=== PATIENT | male | born 1960 | race African-American/Black ===

== ENCOUNTER 2017-03-26 13:31 | Emergency (ER) | payer BC, SELFPAY ==
[2017-03-26 13:42] VITALS: BP 154/91; PULSE 87; RESP 20; TEMP 37.5; O2SAT 100; BMI 35.9
[2017-03-26 14:00] LABS: UTC Influenza A Antigen Negative (Negative); UTC Influenza B Antigen Negative (Negative)
--- NOTE | 2017-03-26 14:03 | HMH.EDUTC ---
[facility] [place] Disposition Clinical Impression: Flu-like symptoms Disposition: Home, Self-Care Condition on Discharge: Good Instructions: DI for Headache Additional Instructions: Follow up with family doctor REturn if needed Over the counter Motrin or Tylenol as needed for fever or pain Go straight to ER if any life threatening complication Referrals: Viet Dotson MD [Primary Care Provider] - Time of Disposition: 14:11 Medical Decision Making - Medical Records Medical records reviewed: Yes: I reviewed the patient's medical records. Vital Signs: 03/26/17 13:42 Temperature 99.5 F Temperature Source Temporal Artery Scan Pulse Rate [Right] 87 Respiratory Rate 20 Blood Pressure [Right Arm] 154/91 Blood Pressure Mean [Right Arm] 112 Blood Pressure Source [Right Arm] Automatic Cuff Blood Pressure Position [Right Arm] Sitting 02 Sat by Pulse Oximetry 100 Oxygen Delivery Method Room Air - Lab Data Lab Results 03/26/17 13:35: Influenza Type A Ag Negative, Influenza Type B Ag Negative - Gallito Inquiry Pt receiving controlled substance: No Gallito was queried for this patient: No [facility] HPI - General Stated complaint: head cold Mode of Arrival: Ambulatory Source of Information: Patient Limitations: No Limitations Description of Symptoms (Recalled from Triage Doc. 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, and a slight headache States that he was worried that he may have the flu because many of the children have been out of school due to the flu so he came up to get checked State that he dont think he has had a fever, denies sore throat denies nasal congestion - Related Data Allergies Allergy/AdvReac Type Severity Reaction Status Date / Time No Known Allergies Allergy Verified 03/26/17 13:45 - Worker's Comp Is this a Worker's Comp case?: No [facility] History I have reviewed the patient's past medical history: Yes - *Social History Alcohol Intake: never - Psychiatric History Expresses thoughts of harming self/others: None Suicide Plan Description: No Plan ROS Obtained: Yes All systems reviewed & no additional complaints - Constitutional Constitutional: Reports chills, Denies fever(s), Reports headache(s) - ENT Ears, Nose, Mouth, and Throat: Denies nasal congestion, Denies sore throat Physical Exam - General General appearance: alert, in no apparent distress - ENT ENT exam: Present: normal exam, normal oropharynx, mucous membranes moist, TM's normal bilaterally, normal external ear exam - Respiratory Respiratory exam: Present: normal lung sounds bilaterally. Absent: respiratory distress - Cardiovascular Cardiovascular exam: Present: regular rate, normal rhythm. Absent: JVD - Abdominal Exam Abdominal exam: Present: soft, normal bowel sounds. Absent: distention, tenderness, guarding - Neurological Exam Neurological exam: Present: alert, oriented X3
--- NOTE | 2017-03-26 14:07 | ED_ITS ---
[facility] [place] Clinical Impression: Flu-like symptoms Disposition: Home, Self-Care Condition on Discharge: Good Instructions: DI for Headache Additional Instructions: Follow up with family doctor REturn if needed Over the counter Motrin or Tylenol as needed for fever or pain Go straight to ER if any life threatening complication Referrals: Viet Dotson MD [Primary Care Provider] - Time of Disposition: 14:11 Medical Decision Making - Medical Records Medical records reviewed: Yes: I reviewed the patient's medical records. Vital Signs: 03/26/17 13:42 Temperature 99.5 F Temperature Source Temporal Artery Scan Pulse Rate [Right] 87 Respiratory Rate 20 Blood Pressure [Right Arm] 154/91 Blood Pressure Mean [Right Arm] 112 Blood Pressure Source [Right Arm] Automatic Cuff Blood Pressure Position [Right Arm] Sitting 02 Sat by Pulse Oximetry 100 Oxygen Delivery Method Room Air - Lab Data Lab Results 03/26/17 13:35: Influenza Type A Ag Negative, Influenza Type B Ag Negative - Galltio Inquiry Pt receiving controlled substance: No Gallito was queried for this patient: No [facility] [place] HPI - General Stated complaint: head cold Mode of Arrival: Ambulatory Source of Information: Patient Limitations: No Limitations Description of Symptoms (Recalled from Triage Doc. 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 History I have reviewed the patient's past medical history: Yes - *Social History Alcohol Intake: never - Psychiatric History Expresses thoughts of harming self/others: None Suicide Plan Description: No Plan ROS Obtained: Yes All systems reviewed & no additional complaints - Constitutional Constitutional: Reports chills, Denies fever(s), Reports headache(s) - ENT Ears, Nose, Mouth, and Throat: Denies nasal congestion, Denies sore throat Physical Exam - General General appearance: alert, in no apparent distress - ENT ENT exam: Present: normal exam, normal oropharynx, mucous membranes moist, TM's normal bilaterally, normal external ear exam - Respiratory Respiratory exam: Present: normal lung sounds bilaterally. Absent: respiratory distress - Cardiovascular Cardiovascular exam: Present: regular rate, normal rhythm. Absent: JVD - Abdominal Exam Abdominal exam: Present: soft, normal bowel sounds. Absent: distention, tenderness, guarding - Neurological Exam Neurological exam: Present: alert, oriented X3
[2017-03-26 14:17] VITALS: BP 132/87; PULSE 88; RESP 20; TEMP 37.1
== END 2017-03-26 14:18 | disposition home or self-care (01) ==
PROVIDERS: Emergency Provider Nurse Practitioner; Family Provider Family Medicine; PCP Family Medicine
DX: J11.1 Influenza due to unidentified influenza virus with other respiratory manifestations (principal)
CPT/HCPCS: 87804; 99202

== ENCOUNTER → 2017-05-05 16:10 | Outpatient (CLI) | payer BC, OTHER, SELFPAY ==
--- NOTE | 2017-05-05 16:15 | XR_ITS ---
XR hand LT min 3V HISTORY: Pain, arthritis ITS.REASON: JOSE HAND PAIN ORDERING PHYSICIAN: Viet Dotson MD PATIENT AGE: 56 years COMPARISON: None FINDINGS: Severe osteoarthritic changes are present at the first metacarpophalangeal joint with hypertrophic changes of the distal aspect of the first metacarpal. Mild osteoarthritic changes involving the DIP of the fifth digit. No fracture or dislocation. No lytic or blastic change. 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
--- NOTE | 2017-05-05 16:15 | XR_ITS ---
XR hand RT min 3V HISTORY: Right hand pain ITS.REASON: JOSE HAND PAIN ORDERING PHYSICIAN: Viet Dotson MD PATIENT AGE: 56 years COMPARISON: None FINDINGS: There are mild osteoarthritic changes of the right first metacarpal phalangeal joint and the fifth PIP joint. No fracture or dislocation. Mild osteoarthritic change also at the DIP joint of the third digit. IMPRESSION: Osteoarthritis as described above
== END ==
PROVIDERS: PCP Family Medicine; Visit Provider Family Medicine
DX: M79.641 Pain in right hand (principal); M79.642 Pain in left hand
CPT/HCPCS: 73130

== ENCOUNTER → 2017-05-11 20:01 | Outpatient (CLI) | payer OTHER, BC, SELFPAY | PROVIDERS: PCP Family Medicine; Visit Provider Nurse Practitioner Family | DX: G47.33 Obstructive sleep apnea (adult) (pediatric) (principal); K21.9 Gastro-esophageal reflux disease without esophagitis | CPT/HCPCS: 95810 ==

== ENCOUNTER → 2018-05-08 13:50 | Outpatient (POV) | payer OTHER, BC, SELFPAY | PROVIDERS: Visit Provider Dermatology | DX: Z00.00 Encounter for general adult medical examination without abnormal findings (principal) ==

== ENCOUNTER → 2019-03-13 10:45 | Outpatient (CLI) | payer BC, OTHER, SELFPAY ==
--- NOTE | 2019-03-13 10:54 | XR_ITS ---
PROCEDURE: XR KNEE RT 3V CLINICAL INDICATION: RT KNEE GIVES AWAY COMPARISON: No exams were available for comparison FINDINGS: No fracture or dislocation. No lytic or blastic change. There is normal mineralization. Minimal osteoarthritic changes are present involving all 3 compartments. There does appear to be a small suprapatellar effusion Other findings:None. IMPRESSION: Minimal osteoarthritic changes with small suprapatellar effusion Dictated by: Christo Avery MD 03/13/2019 15:43 Electronically signed by Christo Avery MD in [place] 03/13/2019 15:43
== END ==
PROVIDERS: PCP Nurse Practitioner; Visit Provider Nurse Practitioner
DX: M25.361 Other instability, right knee (principal)
CPT/HCPCS: 73562

== ENCOUNTER 2019-04-16 15:00 | Outpatient (RCR) | payer BC, SELFPAY ==
--- NOTE | 2019-03-20 15:52 | HMH.PTOPEV ---
PT Outpatient Evaluation Rehab PT Outpatient Evaluation Start: 03/20/19 15:27 Freq: Status: Active Protocol: Document 03/20/19 15:27 [email or web address] (Rec: 03/20/19 15:52 RONNIEJOSE [id number]) Electronically Signed By Jean Fernández, PT 03/20/19 15:27 Outpatient Therapy Subjective History Subjective History Patient is a 58 year old male presenting to outpatient PT with reports of R knee pain and stiffness starting 03/12/19. Pt reports that he was riding a recumbent bike and then began walking when he felt a pop. Since then pain has progressively goten worse. Most recent imaging indicate R knee minimal arthritic changes and suprapatellar effusion. Comorbidities include L CINDY, OA and elevated BMI. Chief Complaint Pain,Swelling,Weakness Symptom Type Ache Symptoms Relieved By Activity Symptoms Aggravated By Sitting,Standing,Walking Prior Functional Limitations None Current Functional Limitations Housework,Driving,Standing, Sitting,Squatting,Recreation Activity,Walking,Stairs, Balance Symptom Description Intermittent Level of pain today (0-10) 4 Pain scale - at its best (0-10) 2 Pain scale - at its worst (0-10) 8 Hip/Knee Eval Gait Observation General Gait Pattern Observation Antalgic Gait,Decrease Weight Bear (R) Assistive Device Assistive Devices None / NA Palpation Tenderness right Knee Palpation Finding Tenderness Knee Palpation Overall Comment medial joint line, popliteal fossa 3/4 MMT left Hip Flexion Strength Grade 4 Good Hip Abduction Strength Grade 4 Good Hip Adduction Strength Grade 4 Good Hip Extension Strength Grade 4 Good Gluteus Asad Strength Grade 4 Good Hip External Rotation Strength Grade 4 Good Hip Internal Rotation Strength Grade 4 Good Knee Extension Strength Grade 4 Good Knee Flexion Strength Grade 4 Good right Hip Flexion Strength Grade 4- Good- Hip Abduction Strength Grade 4- Good- Hip Adduction Strength Grade 4- Good- Hip Extension Strength Grade 4- Good- Gluteus Asad Strength Grade 4- Good- Hip External Rotation Strength Grade 4- Good- Hip Internal Rotation Strength Grade 4- Good- Knee Extension Strength Grade
== END 2019-04-16 15:05 | disposition home or self-care (01) ==
LOC: PT 15:00
PROVIDERS: PCP Nurse Practitioner; Visit Provider Nurse Practitioner
DX: M25.661 Stiffness of right knee, not elsewhere classified (principal)
CPT/HCPCS: 97010; 97014; 97110; 97163; G0283

== ENCOUNTER 2019-06-17 02:20 | Emergency (ER) | payer BC, SELFPAY ==
[2019-06-17] VITALS (10 sets, daily range): BP systolic 127–174; BP diastolic 77–89; PULSE 95–118; RESP 16–18; TEMP 36.5–36.8; O2SAT 97–99; BMI 35.2
--- NOTE | 2019-06-17 02:34 | ECG_ITS ---
APPROVED REPORT Exam: Resting ECG HR:123 bpm ECG Measurements Heart Rate 123 AXES AL 136 P 76 QRSd 72 QRS 20 QT 316 T 43 QTc 452 <Conclusion> Sinus tachycardia Junctional ST depression, probably normal Borderline ECG Electronically signed by : Kvng Fajardo, 06/17/2019 14:04:04
[2019-06-17 02:41] LABS: Basophils # 0.1 K/mm3 (0-0.2); Basophils % 0.6 % (0.1-2.0); Eosinophils # 0.2 K/mm3 (0.0-0.4); Eosinophils % 2.2 % (0.1-12.0); Hematocrit 44.5 % (42.0-52.0); Hemoglobin 14.4 g/dL (14.1-18.0); Lymphocytes # 5.3 K/mm3 (0.7-4.5); Lymphocytes % 48.8 % (10-50); Mean Corpuscular HGB Conc 32.3 g/dL (31.8-35.4); Mean Corpuscular Hemoglobin 30.4 pg (27.0-31.2); Mean Corpuscular Volume 94.2 fl (80-94); Mean Platelet Volume 6.9 fl (7.4-10.4); Monocytes # 0.5 K/mm3 (0.1-1.0); Monocytes % 4.3 % (1.7-9.3); Neutrophils # 4.8 K/mm3 (1.8-7.8); Neutrophils % 44.2 % (37.0-80.0); Platelet Count 285 K/mm3 (142-424); Red Blood Count 4.73 M/mm3 (4.60-6.20); Red Cell Distribution Width 13.4 % (11.5-17.5); White Blood Count 10.9 K/mm3 (4.8-10.8)
--- NOTE | 2019-06-17 02:41 | XR_ITS ---
PROCEDURE: XR CHEST 2V CLINICAL HISTORY: Elevated BP hypertension COMPARISON: CXR CHEST(2 VIEWS-NOT PORTABLE) from 10/10/2016 FINDINGS: The cardiomediastinal silhouette and pulmonary vascularity are within normal limits. The lungs are clear without infiltrates, suspicious nodules, or pleural effusions. No acute bony abnormalities. IMPRESSION: No acute findings. Dictated by: Christo Avery MD 06/17/2019 08:01 Electronically signed by Christo Avery MD in [place] 06/17/2019 08:01
--- NOTE | 2019-06-17 02:45 | PC.NURSE ---
iv secured to left ac. pt resting comfortably. ivf's infusing at this time. no additional orders noted. continues to deny discomfort. nad obs.
[2019-06-17 02:50] LABS: Anion Gap 9.4 mEq/L (5-15); Blood Urea Nitrogen 15 mg/dl (9-20); Calcium 9.5 mg/dl (8.4-10.2); Carbon Dioxide 28 mmol/L (22.0-30.0); Chloride 101 mmol/L (98-107); Creatinine Clearance Estimated 131 mL/min (50-200); Estimated Glomerular Filt Rate 76 ml/min (>60); GFR (African American) 92 ML/MIN (>60); Glucose 116 mg/dl (74-100); Potassium 3.4 mmoL/L (3.5-5.1); Sodium 135 mmol/L (136-145)
[2019-06-17 03:05] LABS: Troponin I < 0.01 ng/ml (0.00-0.034)
--- NOTE | 2019-06-17 03:22 | HMH.EDARPALP ---
ED Disposition Clinical Impression: Palpitations Disposition: Home, Self-Care Condition on Discharge: Good Instructions: DI for Palpitations Additional Instructions: call pcp for follow up this am Referrals: Viet Dotson MD [Primary Care Provider] - - Critical Care Critical Care Time: No Attestation: On 06/17/19, the high probability of a clinically significant, sudden or life threatening deterioration of the following system(s) required my full and direct attention, intervention and personal management. The time I documented below is in addition to time spent performing reported procedures but includes the following listed in this critical care notation. Medical Decision Making - Medical Records Medical records reviewed: Yes: I reviewed the patient's medical records. - Gallito Inquiry Pt receiving controlled substance: No Vital Signs: 06/17/19 02:34 06/17/19 02:43 06/17/19 03:16 Temperature 98.2 F 98.2 F Temperature Source Oral Oral Pulse Rate [Right Brachial] 118 H 110 H 111 H Respiratory Rate 16 18 18 Blood Pressure [Right Arm] 174/89 H 170/81 H 146/80 H Blood Pressure Mean [Right Arm] 117 110 102 Blood Pressure Source [Right Arm] Automatic Cuff Automatic Cuff Blood Pressure Position [Right Arm] Sitting Sitting 02 Sat by Pulse Oximetry 98 99 98 Oxygen Delivery Method Room Air Room Air Room Air 06/17/19 04:12 06/17/19 04:30 06/17/19 05:08 Temperature Temperature Source Pulse Rate [Right Brachial] 105 H 102 H 99 H Respiratory Rate 18 16 18 Blood Pressure [Right Arm] 150/85 H 150/86 H 137/79 Blood Pressure Mean [Right Arm] 106 107 98 Blood Pressure Source [Right Arm] Automatic Cuff Blood Pressure Position [Right Arm] 02 Sat by Pulse Oximetry 97 98 98 Oxygen Delivery Method Room Air Room Air Room Air 06/17/19 05:36 06/17/19 06:11 06/17/19 06:38 Temperature Temperature Source Pulse Rate [Right Brachial] 98 H 98 H 95 H Respiratory Rate 18 18 18 Blood Pressure [Right Arm] 131/77 127/81 145/87 H Blood Pressure Mean [Right Arm] 95 96 106 Blood Pressure Source [Right Arm] Blood Pressure Position [Right Arm] 02 Sat by Pulse Oximetry 98 99 99 Oxygen Delivery Method Room Air Room Air Room Air - Lab Data Lab results reviewed: Yes: I reviewed the patient's lab results. Lab Results 06/17/19 02:33: WBC 10.9 H, RBC 4.73, Hgb 14.4, Hct 44.5, MCV 94.2 H, MCH 30.4, MCHC 32.3, RDW 13.4, Plt Count 285, MPV 6.9 L, Neut % (Auto) 44.2, Lymph % (Auto) 48.8, [place] % (Auto) 4.3, Eos % (Auto) 2.2, Baso % (Auto) 0.6, Neut # (Auto) 4.8, Lymph # (Auto) 5.3 H, [place] # (Auto) 0.5, Eos # (Auto) 0.2, Baso # (Auto) 0.1 06/17/19 02:33: Sodium 135 L, Potassium 3.4 L, Chloride 101, Carbon Dioxide 28, Anion Gap 9.4, BUN 15, Creatinine 1.00, Estimated Creat Clear 131, Estimated GFR 76, Est GFR ( Amer) 92, Glucose 116 H, Calcium 9.5, Troponin I < 0.01 06/17/19 05:28: Troponin I < 0.01 Result diagrams: 06/17/19 02:33 06/17/19 02:33 Orders (Tests/Meds): ED MEDICATIONS Generic Name Dose Route Start Last Admin Trade Name Freq PRN Reason Stop Dose Admin Sodium Chloride 1,000 mls @ 999 mls/hr 06/17/19 02:45 06/17/19 02:45 Sod Chlor 0.9% 1000ml Bag IV 06/17/19 03:45 999 mls/hr .Q1H1M WAYNE Administration ORDERS Category Date Time Status XR chest 2V Stat Exams 06/17/19 02:41 Taken Troponin I Q3H Lab 06/17/19 08:45 Ordered Holter Monitor Req by Nse/ Stat Y 06/17/19 06:02 Ordered - Radiology Data #1 Image(s): Chest Image Reviewed: Yes I reviewed the patient's radiology image Preliminary Findings: Normal/NAD - ECG Data Tracing #1 Arrhythmias present: sinus tach Ischemic changes: non-specific ST-T wave changes - CADEN Score for Non-Stemi Age of Patient: 60-69 years old Heart Rate: 110-149 bpm Systolic Blood Pressure: 160-199 mmHg Serum Creatinine: 0.80-1.19 mg/dl CHF Killip Class: I-No CHF Other Risk Factors: None Non-Stemi Risk Score: 99
[2019-06-17 05:58] LABS: Troponin I < 0.01 ng/ml (0.00-0.034)
--- NOTE | 2019-06-17 06:32 | PC.NURSE ---
respiratory therapist at bedside placing halter monitor
== END 2019-06-17 06:52 | disposition home or self-care (01) ==
PROVIDERS: Emergency Provider Emergency Medicine; PCP Family Medicine
DX: R00.2 Palpitations (principal); G43.709 Chronic migraine without aura, not intractable, without status migrainosus; Z87.891 Personal history of nicotine dependence
CPT/HCPCS: 71046; 80048; 84484; 85025; 93005; 93225; 93226; 96365; 99284

== ENCOUNTER → 2020-01-09 09:24 | Outpatient (CLI) | payer BC, SELFPAY ==
[2020-01-09 12:20] LABS: Alanine Aminotransferase 13 U/L (12-78); Albumin Level 4.6 g/dl (3.5-5.0); Albumin/Globulin Ratio 1.4 (1.1-1.8); Alkaline Phosphatase 70 U/L (38-126); Anion Gap 11.4 mEq/L (5-15); Aspartate Amino Transferase 23 U/L (17-59); Bilirubin,Total 0.6 mg/dl (0.2-1.3); Blood Urea Nitrogen 12 mg/dl (9-20); Calcium 9.9 mg/dl (8.4-10.2); Carbon Dioxide 32 mmol/L (22.0-30.0); Chloride 101 mmol/L (98-107); Estimated Glomerular Filt Rate 86 ml/min (>60); GFR (African American) 104 ML/MIN (>60); Globulin 3.2 g/dL (1.3-3.2); Glucose 96 mg/dl (74-100); Potassium 4.4 mmoL/L (3.5-5.1); Sodium 140 mmol/L (136-145); Total Protein,Serum 7.8 g/dl (6.3-8.2)
[2020-01-09 13:26] LABS: Vitamin B12 476 pg/mL (239-931)
[2020-01-09 13:32] LABS: Folate 6.07 ng/mL
== END ==
PROVIDERS: Visit Provider Specialist
DX: G43.909 Migraine, unspecified, not intractable, without status migrainosus (principal); R42 Dizziness and giddiness; I10 Essential (primary) hypertension
CPT/HCPCS: 36415; 80053; 82607; 82746

== ENCOUNTER 2020-01-14 12:58 | Outpatient (RCR) | payer BC, SELFPAY ==
--- NOTE | 2020-01-14 14:18 | HMH.PTOPEV ---
PT Outpatient Evaluation Rehab PT Outpatient Evaluation Start: 01/14/20 13:16 Freq: Status: Active Protocol: Document 01/14/20 14:00 PHORNE (Rec: 01/14/20 14:18 PHORNE [id number]) Electronically Signed By Cristóbal Gardiner, PT 01/14/20 14:00 Outpatient Therapy Subjective History Subjective History Pt is 59 yoaam who presents with c/o dizziness x ~ 14 yrs intermittently, but worse x ~ 3 mos. He states, I put some peroxide in my L ear about 3 months ago and it hurt really bad and my dizziness has been a lot worse since then. He reports he also has a hx of tinnitus in B ears with the L slightly worse than the right. He reports very rare vertigo with certain movements, but he has not had any recently. He also reports hx of Sleep apnea , migraines, HTN, and anxiety. He does take meds for hypertension, but has only been on them for ~ 4 mos. No nystagmus noted with Hotchkiss- Halpike or horizontal roll testing. Mild symptoms noted with VOR cancellation test, but no nystagmus noted. Otherwise all occulomotor testing is normal. Chief Complaint Other Symptom Type Other Symptoms Relieved By Rest/Positioning Symptoms Aggravated By Twisting Prior Functional Limitations None Current Functional Limitations Driving,Recreation Activity Symptom Description Intermittent Level of pain today (0-10) 0 Pain scale - at its worst (0-10) 0 Balance Eval Nystagmus Nystagmus Presence None Oculomotor Gaze Oculomotor Gaze Nml: Vergence Smooth Pursuit Saccades Cover/Uncover Cross Cover Abn: VOR Cancellation [place] Feet Together/Eyes open/Stable Surface pass Feet Together/Eyes Closed/Stable Surface pass Feet Together/Eyes open/Unstable Surface pass Feet Together/Eyes Closed/Unstable pass Surface Outpatient Therapy Assessment Impairments Problems/Impairmments Impaired Driving,Impaired
== END 2020-01-14 12:59 | disposition home or self-care (01) ==
LOC: PT 12:58
PROVIDERS: PCP Family Medicine; Visit Provider Specialist
DX: R42 Dizziness and giddiness (principal)
CPT/HCPCS: 97163

== ENCOUNTER → 2020-01-14 15:05 | Outpatient (CLI) | payer BC, SELFPAY ==
--- NOTE | 2020-01-14 15:05 | MR_ITS ---
PROCEDURE: MR HEAD/BRAIN WO/W CON CLINICAL INDICATION: dizziness Dizziness and headaches COMPARISON: CT HDWO CT HEAD W/O CONTRAST from 07/07/2016 TECHNIQUE: Routine multiplanar multi echo sequences are performed without gadolinium enhancement. FINDINGS: No midline shift or mass effect. No acute intracranial hemorrhage. The cerebellopontine angles, cerebellum, and brainstem have an unremarkable appearance. No evidence of acute infarction. No enhancing lesions are evident. There are scattered periventricular and subcortical T2 white matter hyperintensities which are nonspecific. These do not demonstrate restricted diffusion and do not demonstrate contrast enhancement. The pituitary, optic chiasm, corpus callosum, and craniocervical junction have an unremarkable appearance. There is a bulging disc at C3-C4 with narrowing of the canal at this level. No sinus air-fluid level or mastoid effusion is evident IMPRESSION: 1. No acute intracranial findings 2. Multiple periventricular and subcortical T2 white matter hyperintensities which is nonspecific. Differential diagnosis includes ischemic gliotic change from microvascular disease, migraine headache, demyelinating process. Please correlate with clinical parameters Dictated by: Christo Avery MD 01/15/2020 18:17 Christo Avery MD in [place] 01/15/2020 18:17
== END ==
PROVIDERS: PCP Family Medicine; Visit Provider Specialist
DX: G43.909 Migraine, unspecified, not intractable, without status migrainosus (principal); R42 Dizziness and giddiness
CPT/HCPCS: 70553; A9576

== ENCOUNTER → 2020-10-02 13:08 | Outpatient (CLI) | payer BC, SELFPAY ==
--- NOTE | 2020-10-02 | CA_ITS ---
APPROVED REPORT Right Upper Extremity Venous Study for DVT. Civil Drafting Technician: RYAN Givens Upper Extremity Swelling: Right Vein Imaging IJV (R): Normal phasic flow is seen. Normal flow, augmentation and compression is seen. No evidence of Deep Vein Thrombosis. No abnormalities are demonstrated. SCV (R): Normal phasic flow is seen. Normal flow, augmentation and compression is seen. No evidence of Deep Vein Thrombosis. No abnormalities are demonstrated. Axillary (R): Normal phasic flow is seen. Normal flow, augmentation and compression is seen. No evidence of Deep Vein Thrombosis. No abnormalities are demonstrated. Brachial (R): Normal phasic flow is seen. Normal flow, augmentation and compression is seen. No evidence of Deep Vein Thrombosis. No abnormalities are demonstrated. Basilic (R): Normal phasic flow is seen. Normal flow, augmentation and compression is seen. No evidence of Deep Vein Thrombosis. No abnormalities are demonstrated. Cephalic (R): Normal phasic flow is seen. Normal flow, augmentation and compression is seen. No evidence of Deep Vein Thrombosis. No abnormalities are demonstrated. Radial (R): Normal phasic flow is seen. Normal flow, augmentation and compression is seen. No evidence of Deep Vein Thrombosis. No abnormalities are demonstrated. Ulnar (R): Normal phasic flow is seen. Normal flow, augmentation and compression is seen. No evidence of Deep Vein Thrombosis. No abnormalities are demonstrated. Findings Study suggets no evidence of DVT or SVT of the right upper extremity. Conclusion Study suggets no evidence of DVT or SVT of the right upper extremity. Electronically signed by : Christo Avery MD 10/02/2020 15:05:31
== END ==
PROVIDERS: PCP Family Medicine; Visit Provider Family Medicine
DX: M79.89 Other specified soft tissue disorders (principal)
CPT/HCPCS: 93971

== ENCOUNTER → 2021-04-08 13:33 | Outpatient (CLI) | payer BC, SELFPAY ==
[2021-04-08 15:15] LABS: Blood Urea Nitrogen 16 mg/dl (9-20); Estimated Glomerular Filt Rate 76 ml/min (>60); GFR (African American) 92 ML/MIN (>60)
== END ==
PROVIDERS: Visit Provider Family Medicine
DX: Z01.812 Encounter for preprocedural laboratory examination (principal)
CPT/HCPCS: 36415; 82565; 84520

== ENCOUNTER → 2021-04-09 12:53 | Outpatient (CLI) | payer BC, SELFPAY ==
--- NOTE | 2021-04-09 12:59 | CT_ITS ---
FINAL REPORT CLINICAL HISTORY: RT UPPER LIMB PAIN,SWELLING, since sep 2020, no known injury FINDINGS: CT UPPER EXTREMITY W/O CONTRAST Technique: Axial images through the right upper extremity were performed by computed tomography. Sagittal and coronal reconstruction images were performed. This study was performed with techniques to keep radiation doses as low as reasonably achievable (ALARA). Individualized dose reduction techniques using automated exposure control or adjustment of mA and/or kV according to the patient's size were employed. No fracture is identified. No dislocation identified. There is mild degenerative change of the shoulder. There is moderate to severe degenerative change of the elbow. There is a 6 mm loose body adjacent to the neck of the radius. There is a large calcification posterior to the radial head measuring 24 mm favoring an additional loose body over a large spur. There is no significant joint effusion. The musculature is intact. There is no soft tissue mass or cyst. IMPRESSION: No soft tissue mass or cyst. Degenerative changes of the shoulder and elbow with a loose body or loose bodies at the elbow. Reviewed, Interpreted and Dictated by Jose F Anderson III, MD Transcribed by Armani Landis Authenticated by Jose F Anderson III, MD on 04/09/2021 03:10:47 PM [facility]
== END ==
PROVIDERS: PCP Family Medicine; Visit Provider Family Medicine
DX: M79.601 Pain in right arm (principal); M79.89 Other specified soft tissue disorders
CPT/HCPCS: 73201; Q9967

== ENCOUNTER 2021-09-09 10:00 | Outpatient (RCR) | payer BC, SELFPAY | END 2021-09-09 10:05 | disposition home or self-care (01) | LOC: PT 10:00 | PROVIDERS: Visit Provider Orthopaedic Surgery | DX: M17.0 Bilateral primary osteoarthritis of knee (principal) | CPT/HCPCS: 97035; 97110; 97112; 97140; 97163; 97164; 97530; 97535 ==

== ENCOUNTER 2021-09-16 14:02 | Emergency (ER) | payer BC, SELFPAY ==
[2021-09-16 14:15] VITALS: BP 148/86; PULSE 71; RESP 19; TEMP 37.2; O2SAT 99; BMI 38.2
[2021-09-16 14:29] VITALS: BP 148/86; PULSE 71; RESP 19; TEMP 37.2; O2SAT 99
--- NOTE | 2021-09-16 14:41 | HMH.EDUTC ---
[facility] [place] Disposition Clinical Impression: Encounter for laboratory testing for COVID-19 virus Disposition: Home, Self-Care Condition on Discharge: Good Instructions: DI for COVID-19 (Suspected or Confirmed ), Preventing the Spread of Coronavirus Discharge Instructions Additional Instructions: *Monitor Temp, Over the counter Motrin or Tylenol as directed/as needed Tylenol every 4 hours and Motrin every 6 hours (as long as your family doctor has told you that you can take it) for fever or pain. and straight to ER if unable to lower temp less than 101.0 after medication given Follow up IMMEDIATELY for new or worsening symptoms or no Noticeable improvement over the next 48-72 hours. 911 for difficulty breathing or swallowing You were tested for today for COVID19 your test result should be back in the next 24-48 hours, you may check your results on the [facility] My Health Portal Make sure to take your Vitamins Vit. C Vit D and Zinc if you can take them Referrals: Viet Dotson MD [Primary Care Provider] - As needed Time of Disposition: 14:48 Medical Decision Making - Gallito Inquiry Pt receiving controlled substance: No Gallito was queried for this patient: No Vital Signs: 09/16/21 14:15 09/16/21 14:29 Temperature 99.0 F 99.0 F Temperature Source Oral Pulse Rate 71 Pulse Rate [Left Brachial] 71 Respiratory Rate 19 19 Blood Pressure 148/86 H Blood Pressure [Left Arm] 148/86 H Blood Pressure Mean [Left Arm] 106 Blood Pressure Source [Left Arm] Automatic Cuff Blood Pressure Position [Left Arm] Sitting 02 Sat by Pulse Oximetry 99 Oxygen Delivery Method Room Air Orders (Tests/Meds): ORDERS Category Date Time Status Covid-19 Nasal PCR ([facility]) Routine Lab 09/16/21 14:20 Received [facility] HPI - General Stated complaint: Covid test Time Seen by Provider: 09/16/21 14:30 Mode of Arrival: Ambulatory Source of Information: Patient Limitations: No Limitations Description of Symptoms (Recalled from Triage Doc. by RN): PATIENT REQUESTING COVID TEST FOR TRAVEL. DENIES SYMPTOMS AND EXPOSURE HEENT Symptoms (Recalled from RN notes): No Resp Symptoms (Recalled from RN notes): No Skin Symptoms (Recalled from RN notes): No MS Symptoms (Recalled from RN notes): No Functional Status (Recalled from RN notes): WNL - History of Present Illness Provider Complaint: Patient states that he is getting ready to travel and he wanted to get tested for COVID before he went States that he isnt having any symptoms but he wanted to get tested - Related Data Home Medications Medication Instructions Recorded Confirmed nebivolol 10 mg tablet 10 mg PO DAILY 01/09/20 07/16/20 Previous Rx's Medication Instructions Recorded meclizine 12.5 mg tablet 12.5 mg PO BID PRN #60 tab 07/16/20 topiramate 100 mg tablet 100 mg PO DAILY #30 tab NS MDD 100 07/16/20 mg Allergies Allergy/AdvReac Type Severity Reaction Status Date / Time No Known Allergies Allergy Verified 07/16/20 14:22 - Worker's Comp Is this a Worker's Comp case?: No [facility] History - Hepatitis A Screen Attestation statement:: This patient has been screened for Hepatitis A risk factors. I have reviewed the patient's past medical history: Yes Medical History: Reports:: Anxiety, Diabetes Mellitus Type 1, Hypertension, Migraine Denies:: Diabetes Mellitus Type 2, Internal Pacemaker, Lung Disease, Seizures Other Medical History: Reports: Arthritis, Other Comment: SHEN Laterality Cases: Left: Total Hip Replacement, Other Other Surgeries: Yes: Colonoscopy, EGD, Other. No: Pacemaker Amputation: No Fractures: Yes Comment: Right thumb, esophagus - Social History Smoking Status: Former smoker Tobacco Type: cigarettes Alcohol Intake: never Alcohol Intake Frequency:: holidays/special occasions only Substance Use Type: denies use Occupational Status: employed Housing: house Household Members: none - Psychiatric History Pschychiatric History:: Repor
== END 2021-09-16 14:42 | disposition home or self-care (01) ==
PROVIDERS: Emergency Provider Nurse Practitioner; PCP Family Medicine
DX: Z20.822 Contact with and (suspected) exposure to COVID-19 (principal); Z02.89 Encounter for other administrative examinations
CPT/HCPCS: 99212; C9803; G0463; U0003; U0005

== ENCOUNTER 2021-09-26 08:59 | Emergency (ER) | payer BC, SELFPAY ==
[2021-09-26 09:05] VITALS: BP 131/86; PULSE 72; RESP 18; TEMP 36.8; O2SAT 98; BMI 36.6
[2021-09-26 09:19] VITALS: BP 131/86; PULSE 72; RESP 18; TEMP 36.8; O2SAT 98
--- NOTE | 2021-09-26 09:19 | HMH.EDUTC ---
[facility] [place] Clinical Impression: Encounter for laboratory testing for COVID-19 virus Disposition: Home, Self-Care Condition on Discharge: Good Instructions: DI for COVID-19 (Suspected or Confirmed ), Preventing the Spread of Coronavirus Discharge Instructions Additional Instructions: *Monitor Temp, Over the counter Motrin or Tylenol as directed/as needed Tylenol every 4 hours and Motrin every 6 hours (as long as your family doctor has told you that you can take it) for fever or pain. and straight to ER if unable to lower temp less than 101.0 after medication given *Warm salt water gargles may help to soothe the throat *Throat Lozenges *Warm fluids like tea with honey may help to soothe the throat *Sleep elevated *Humidifier/Vaporizer Follow up IMMEDIATELY for new or worsening symptoms or no Noticeable improvement over the next 48-72 hours. 911 for difficulty breathing or swallowing You were tested for today for COVID19 your test result should be back in the next 24-48 hours, you may check your results on the [facility] My Health Portal Make sure to take your Vitamins Vit. C Vit D and Zinc if you can take them Referrals: Viet Dotson MD [Primary Care Provider] - As needed Forms: Work/School Release Medical Decision Making - Gallito Inquiry Pt receiving controlled substance: No Gallito was queried for this patient: No Vital Signs: 09/26/21 09:05 Temperature 98.3 F Temperature Source Oral Pulse Rate [Right Brachial] 72 Respiratory Rate 18 Blood Pressure [Right Arm] 131/86 Blood Pressure Mean [Right Arm] 101 Blood Pressure Source [Right Arm] Automatic Cuff Blood Pressure Position [Right Arm] Sitting 02 Sat by Pulse Oximetry 98 Oxygen Delivery Method Room Air Orders (Tests/Meds): ORDERS Category Date Time Status Covid-19 Nasal PCR ([facility]) Routine Lab 09/26/21 09:06 Ordered [facility] [place] HPI - General Stated complaint: Possible covid exposure Time Seen by Provider: 09/26/21 09:19 Mode of Arrival: Ambulatory Source of Information: Patient Limitations: No Limitations Description of Symptoms (Recalled from Triage Doc. by RN): PATIENT REQUESTING COVID TEST AFTER RETURNING FROM [place]IP, DENIES SYMPTOMS HEENT Symptoms (Recalled from RN notes): No Resp Symptoms (Recalled from RN notes): No Skin Symptoms (Recalled from RN notes): No MS Symptoms (Recalled from RN notes): No Functional Status (Recalled from RN notes): WNL - History of Present Illness Provider Complaint: Patient states that he was recently went to a convention and several people from the convention has now tested positive for COVID State that he isnt having any symptoms but they wanted him get tested due to exposure - Related Data Home Medications Medication Instructions Recorded Confirmed nebivolol 10 mg tablet 10 mg PO DAILY 01/09/20 07/16/20 Previous Rx's Medication Instructions Recorded meclizine 12.5 mg tablet 12.5 mg PO BID PRN #60 tab 07/16/20 topiramate 100 mg tablet 100 mg PO DAILY #30 tab NS MDD 100 07/16/20 mg Allergies Allergy/AdvReac Type Severity Reaction Status Date / Time No Known Allergies Allergy Verified 07/16/20 14:22 - Worker's Comp Is this a Worker's Comp case?: No [facility] History - Hepatitis A Screen Attestation statement:: This patient has been screened for Hepatitis A risk factors. I have reviewed the patient's past medical history: Yes Medical History: Reports:: Anxiety, Diabetes Mellitus Type 1, Hypertension, Migraine Denies:: Diabetes Mellitus Type 2, Internal Pacemaker, Lung Disease, Seizures Other Medical History: Reports: Arthritis, Other Comment: SHEN Laterality Cases: Left: Total Hip Replacement, Other Other Surgeries: Yes: Colonoscopy, EGD, Other. No: Pacemaker Amputation: No Fractures: Yes Comment: Right thumb, esophagus - Social History Smoking Status: Former smoker Tobacco Type: cigarettes Alcohol Intake: never Alcohol Intake Frequency:: holidays/special occasions
== END 2021-09-26 09:24 | disposition home or self-care (01) ==
PROVIDERS: Emergency Provider Nurse Practitioner; PCP Family Medicine
DX: Z20.822 Contact with and (suspected) exposure to COVID-19 (principal)
CPT/HCPCS: 99212; C9803; G0463; U0003; U0005

== ENCOUNTER 2021-10-21 14:31 | Emergency (ER) | payer BC, SELFPAY ==
[2021-10-21 14:31] VITALS: BP 155/73; PULSE 88; RESP 20; TEMP 37.8; O2SAT 100; BMI 37.3
--- NOTE | 2021-10-21 14:45 | EXP.UTC ---
Discharge Plan Disposition Patient Disposition: Home, Self-Care Condition: Good Prescriptions Prescriptions: New benzonatate [benzonatate] 100 mg capsule 100 mg PO TIDP PRN (Reason: Cough) Qty: 30 0RF ondansetron 4 mg Tablet,Disintegrating 4 mg PO Q8H PRN (Reason: Nausea) Qty: 20 0RF No Action Bystolic 10 mg tablet 10 mg PO DAILY topiramate 100 mg tablet 100 mg PO DAILY MDD 100 mg Qty: 30 3RF Rx Instructions: 100 mg po qd, dispense generic meclizine 12.5 mg tablet 12.5 mg PO BID PRN (Reason: dizziness) Qty: 60 3RF Referrals Follow up/Referrals: Viet Dotson MD [Primary Care Provider] - See instructions Activity Restrictions/Add. Instructions Additional Instructions/Restrictions: Drink plenty of fluids. Take tylenol for pain or fever. Return if you begin to have difficulty breathing or any other concerning symptoms. Follow up with your regular doctor. GO TO THE ER FOR ANY WORSENING SYMPTOMS Clinical Impressions Clinical Impression: Exposure to 2019 novel coronavirus Instructions Patient Instructions: Coronavirus Disease 2019, Preventing the Spread of Coronavirus Discharge Instructions Discharge ED Provider: Jesse Guerrier [facility] General Stated complaint: Covid test Time Seen by Provider: 10/21/21 14:45 History of Present Illness Provider Complaint: He is here to have a covid-19 test. He may have been exposed to covid-19 at a ball game. He denies any symptoms so far. Related Data Home Medications Medication Instructions Recorded Confirmed nebivolol 10 mg tablet (Bystolic) 10 mg PO DAILY 01/09/20 07/16/20 Previous Rx's Medication Instructions Recorded meclizine 12.5 mg tablet 12.5 mg PO BID PRN dizziness #60 07/16/20 tabs topiramate 100 mg tablet 100 mg PO DAILY migraine #30 tabs 07/16/20 benzonatate 100 mg capsule 100 mg PO TIDP PRN Cough #30 caps 10/21/21 ondansetron 4 mg disintegrating 4 mg PO Q8H PRN Nausea #20 tabs 10/21/21 tablet Allergies Allergy/AdvReac Type Severity Reaction Status Date / Time No Known Allergies Allergy Verified 07/16/20 14:22 [facility] Social History Smoking Status: Former smoker alcohol intake: never counseling provided: none substance use type: denies use current occupational status: employed Travel in the last 8 weeks: None household members: none housing: house caffeine: Yes ROS Obtained: Yes All systems reviewed & no additional complaints except as documented Constitutional Constitutional: Reports system reviewed and no additional complaints, except as documented, Denies chills and Denies fever(s) Eyes Eyes: Denies eye discharge ENT Ears, Nose, Mouth, and Throat: Denies dysphagia, Denies sore throat and Denies throat swelling Cardiovascular Cardiovascular: Denies chest pain and Denies dyspnea Respiratory Respiratory: Denies chest congestion, Denies cough and Denies dyspnea Gastrointestinal Gastrointestingal: Denies abdominal pain, constipation, diarrhea, dysphagia, nausea or vomiting Musculoskeletal Musculoskeletal: Denies arthralgias Integumentary/Breasts Skin/Breast: Denies rash Neurologic Neurologic: Denies paresthesias Allergic/Immunologic Allergic/Immunologic: Denies throat swelling Physical Exam General General appearance: alert and in no apparent distress Head Head exam: atraumatic, normocephalic and normal inspection Eye Eye exam: Present normal appearance, PERRL and EOMI ENT ENT exam: Present normal exam, normal oropharynx, mucous membranes moist, TM's normal bilaterally and normal external ear exam Neck Neck exam: Present normal inspection, full ROM and trachea midline; Absent meningismus or lymphadenopathy Chest Chest inspection: Present normal inspection and symmetric chest wall rise; Absent tenderness Respiratory Respiratory exam: Present normal lung sounds bilaterally; Absent respiratory
[2021-10-21 14:49] VITALS: BP 155/73; PULSE 88; RESP 20; TEMP 37.8; O2SAT 100
--- NOTE | 2021-10-22 08:12 | PC.NURSE ---
Notified pt of positive COVID results
== END 2021-10-21 14:52 | disposition home or self-care (01) ==
PROVIDERS: Emergency Provider Nurse Practitioner Family; PCP Family Medicine
DX: U07.1 COVID-19 (principal); Z87.891 Personal history of nicotine dependence
CPT/HCPCS: 99212; C9803; G0463; U0003; U0005

== ENCOUNTER 2021-11-22 06:23 | Emergency (ER) | payer BC, SELFPAY ==
[2021-11-22 06:24] VITALS: BP 197/102; PULSE 90; RESP 16; TEMP 36.9; O2SAT 99; BMI 36.6
--- NOTE | 2021-11-22 06:32 | XR_ITS ---
FINAL REPORT CLINICAL HISTORY: Acute shortness of breath COMPARISON: 11/17/2019 FINDINGS: 2 views of the chest were obtained . The heart is normal in size. The mediastinum is within normal limits. The lungs are clear. There is no pneumothorax. Osseous structures are unremarkable. IMPRESSION: No acute cardiopulmonary process. Reviewed, Interpreted and Dictated by Jose F Anderson III, MD Transcribed by Joaquina Mahajan Authenticated and [facility]
--- NOTE | 2021-11-22 06:34 | ECG_ITS ---
APPROVED REPORT Exam: Resting ECG HR:83 bpm ECG Measurements Heart Rate 83 AXES MI 146 P 88 QRSd 87 QRS 61 QT 344 T 51 QTc 384 Conclusion SINUS RHYTHM NORMAL ECG UNCONFIRMED REPORT Electronically signed by : Viet Olea MD 11/22/2021 21:23:06
--- NOTE | 2021-11-22 06:53 | HMH.EDSOB ---
Discharge Plan Disposition Patient Disposition: Home, Self-Care Chief Complaint: Shortness of Breath/Dyspnea Prescriptions Prescriptions: No Action Bystolic 10 mg tablet 10 mg PO DAILY topiramate 100 mg tablet 100 mg PO DAILY MDD 100 mg Qty: 30 3RF Rx Instructions: 100 mg po qd, dispense generic meclizine 12.5 mg tablet 12.5 mg PO BID PRN (Reason: dizziness) Qty: 60 3RF benzonatate [benzonatate] 100 mg capsule 100 mg PO TIDP PRN (Reason: Cough) Qty: 30 0RF ondansetron 4 mg Tablet,Disintegrating 4 mg PO Q8H PRN (Reason: Nausea) Qty: 20 0RF Referrals Follow up/Referrals: Tanna Duarte MD [Primary Care Provider] - See instructions Clinical Impressions Clinical Impression: Elevated blood pressure reading, Hypertensive urgency Instructions Patient Instructions: Essential Hypertension Discharge ED Provider: Claudio Shepherd Resp/SOB HPI General Chief Complaint: Shortness of Breath/Dyspnea Stated Complaint: HBP, dizzy Time Seen by Provider: 11/22/21 06:53 Mode of Arrival: Ambulatory Source of Information: Patient and Medical Record Limitations: No Limitations Description of Symptoms (Recalled from ER Triage Doc. by RN): pt states that he woke up this moring and feel like his blood pressure was up and was dizziness and SOA. pt states that he feel fine when he went to bed last night. History of Present Illness no chest pain but has sob and dizzyness this am - hx of htn and has been compliant with meds Complaint: shortness of breath Onset (ago): hour(s) Severity: moderate Known history of: other (htn) Treatment prior to arrival: none Related Data Home oxygen amount: none Home Medications Medication Instructions Recorded Confirmed nebivolol 10 mg tablet (Bystolic) 10 mg PO DAILY 01/09/20 07/16/20 Previous Rx's Medication Instructions Recorded meclizine 12.5 mg tablet 12.5 mg PO BID PRN dizziness #60 07/16/20 tabs topiramate 100 mg tablet 100 mg PO DAILY migraine #30 tabs 07/16/20 benzonatate 100 mg capsule 100 mg PO TIDP PRN Cough #30 caps 10/21/21 ondansetron 4 mg disintegrating 4 mg PO Q8H PRN Nausea #20 tabs 09/15/22 tablet Allergies Allergy/AdvReac Type Severity Reaction Status Date / Time No Known Allergies Allergy Verified 07/16/20 14:22 PFSH PFSH Social History Smoking Status: Never smoker alcohol intake: never counseling provided: none substance use type: denies use current occupational status: employed Travel in the last 8 weeks: None household members: none housing: house caffeine: Yes ROS Obtained: Yes All systems reviewed & no additional complaints except as documented Physical Exam General General appearance: alert and obese Head Head exam: normocephalic Eye Eye exam: Present PERRL and EOMI ENT ENT exam: Present mucous membranes moist Neck Neck exam: Absent trachea midline Respiratory Respiratory exam: Present normal lung sounds bilaterally Cardiovascular Cardiovascular exam: Present regular rate and systolic murmur Abdominal Exam Abdominal exam: Present soft Extremities Exam Extremities exam: Present edema Neurological Exam Neurological exam: Present alert, oriented X3 and CN II-XII intact Psychiatric Psychiatric exam: Present normal affect Skin Skin exam: Absent rash Medical Decision Making Medical Records Medical records reviewed: Yes I reviewed the patient's medical records. Gallito Inquiry Pt receiving controlled substance: No Vital Signs: 11/22/21 06:24 11/22/21 07:21 11/22/21 07:31 Temperature 98.4 F 98.0 F Temperature Source Oral Oral Pulse Rate 78 85 Pulse Rate [Right] 90 Respiratory Rate 16 20 20 Blood Pressure 159/92 H 156/82 H Blood Pressure [Right Arm] 197/102 H Blood Pressure Mean 106 Blood Pressure Mean [Right Arm] 133 Blood Pressure Source Automatic Cuff Blood Pressure Position Sitting 02 Sat by Pulse Oxim
[2021-11-22 07:08] LABS: Basophils % 0.3 % (0.1-2.0); Eosinophils # 0.1 K/mm3 (0.0-0.4); Eosinophils % 1.3 % (0.1-12.0); Hematocrit 44.8 % (42.0-52.0); Hemoglobin 14.3 g/dL (14.1-18.0); Lymphocytes # 3.7 K/mm3 (0.7-4.5); Lymphocytes % 39.8 % (10-50); Mean Corpuscular Volume 99.9 fl (80-94); Mean Platelet Volume 7.4 fl (7.4-10.4); Monocytes # 0.4 K/mm3 (0.1-1.0); Monocytes % 4.6 % (1.7-9.3); Platelet Count 230 K/mm3 (142-424); Red Blood Count 4.49 M/mm3 (4.60-6.20); Red Cell Distribution Width 13.5 % (11.5-17.5); White Blood Count 9.2 K/mm3 (4.8-10.8)
[2021-11-22 07:16] LABS: Chloride 103 mmol/L (98-107)
[2021-11-22 07:17] LABS: Potassium 4.1 mmoL/L (3.5-5.1); Sodium 142 mmol/L (136-145)
[2021-11-22 07:20] LABS: Alanine Aminotransferase 24 U/L (12-78); Albumin Level 4.2 g/dl (3.5-5.0); Albumin/Globulin Ratio 1.2 (1.1-1.8); Alkaline Phosphatase 92 U/L (38-126); Anion Gap 12.1 mEq/L (5-15); Aspartate Amino Transferase 32 U/L (17-59); Bilirubin,Total 0.3 mg/dl (0.2-1.3); Blood Urea Nitrogen 13 mg/dl (9-20); Calcium 8.9 mg/dl (8.4-10.2); Carbon Dioxide 31 mmol/L (22.0-30.0); Creatinine Clearance Estimated 131 mL/min (50-200); Estimated Glomerular Filt Rate 85 ml/min (>60); GFR (African American) 103 ML/MIN (>60); Globulin 3.4 g/dL (1.3-3.2); Glucose 112 mg/dl (74-100); Total Protein,Serum 7.6 g/dl (6.3-8.2)
[2021-11-22 07:21] VITALS: BP 159/92; PULSE 78; RESP 20; TEMP 36.7; O2SAT 99
--- NOTE | 2021-11-22 07:26 | PC.NURSE ---
CV lab staff at for echo
[2021-11-22 07:31] VITALS: BP 156/82; PULSE 85; RESP 20; O2SAT 98
[2021-11-22 07:31] LABS: NT Pro Brain Natriuretic Pep. 157 pg/mL (0-125)
[2021-11-22 07:36] LABS: Troponin I < 0.01 ng/ml (0.00-0.034)
[2021-11-22 07:54] LABS: Thyroid Stimulating Hormone 1.52 uIU/mL (0.465-4.68)
[2021-11-22 08:00] VITALS: BP 153/85; PULSE 81; RESP 20; O2SAT 100
--- NOTE | 2021-11-22 08:10 | PC.NURSE ---
DR. GRIJALVA AT BEDSIDE TO UPDATE PT ON POC
[2021-11-22 08:35] VITALS: BP 153/85; PULSE 81; RESP 20; TEMP 36.7; O2SAT 100
== END 2021-11-22 08:37 | disposition home or self-care (01) ==
PROVIDERS: Emergency Provider Emergency Medicine; PCP Family Medicine
DX: I10 Essential (primary) hypertension (principal)
CPT/HCPCS: 71046; 80053; 83880; 84443; 84484; 85025; 93005; 93306; 96374; 99284

== ENCOUNTER 2021-11-29 05:54 | Emergency (ER) | payer BC, SELFPAY ==
[2021-11-29 05:55] VITALS: BP 177/97; PULSE 92; RESP 18; TEMP 37.1; O2SAT 99; BMI 36.6
[2021-11-29 06:08] VITALS: BP 153/78; PULSE 78; RESP 16; TEMP 36.6; O2SAT 98
--- NOTE | 2021-11-29 06:11 | HMH.EDGENADL ---
Discharge Plan Disposition Patient Disposition: Home, Self-Care Condition: Good Chief Complaint: Recheck/Abnormal Lab/Rx Prescriptions Prescriptions: No Action Bystolic 10 mg tablet 10 mg PO DAILY topiramate 100 mg tablet 100 mg PO DAILY MDD 100 mg Qty: 30 3RF Rx Instructions: 100 mg po qd, dispense generic meclizine 12.5 mg tablet 12.5 mg PO BID PRN (Reason: dizziness) Qty: 60 3RF benzonatate [benzonatate] 100 mg capsule 100 mg PO TIDP PRN (Reason: Cough) Qty: 30 0RF ondansetron 4 mg Tablet,Disintegrating 4 mg PO Q8H PRN (Reason: Nausea) Qty: 20 0RF Referrals Follow up/Referrals: Viet Dotson MD [Primary Care Provider] - See instructions Activity Restrictions/Add. Instructions Additional Instructions/Restrictions: You have been evaluated for elevated blood pressure. Please continue to monitor your symptoms closely. Please follow-up with your primary care doctor. She may consider adding a different agent, like a thiazide diuretic, or changing the dose of your medicine. Try other blood pressure reduction strategies like daily exercise and healthy diet. Return to the emergency department at once for any new or worsening symptoms, chest pain, shortness of breath, dizziness, other concern Clinical Impressions Clinical Impression: Elevated blood pressure reading Instructions Patient Instructions: DI for High Blood Pressure, DASH Diet For a Healthy Blood Pressure, Treatments for High Blood Pressure: More Than Just Taking a Pill Discharge ED Provider: Dayanara Bingham Adult HPI General Chief complaint: Recheck/Abnormal Lab/Rx Stated complaint: High Blood Pressure Time Seen by Provider: 11/29/21 06:09 Mode of Arrival: Ambulatory Source of Information: Patient Limitations: No Limitations Description of Symptoms (Recalled from ER Triage Doc. by RN): Pt states he has been having an elevated blood pressure for the last several weeks. Reports that he was in the ER last Monday for htn and was seen in his pcp office on Monday for his htn. Pt states that his pcp was unwilling to change his bp medicine but his htn continues to be elevated. Pt states that his bp this am at 0500 was 163/104 but he took his bp medicine at that time and his pressure is now 177/97. Denies any headache or dizzyiness. History of Present Illness HPI narrative: 61-year-old male presenting to the emergency department with elevated blood pressure readings. He checks his blood pressure twice every day. In the morning it has been persistently elevated, between 140 and 160 systolic. This morning, it was 175 systolic. He has seen his primary care doctor about this problem, they did not want to change medicine at that time. He takes Bystolic 10 mg in the morning. Has never been on other medications. He denies headache, vision changes, chest pain, palpitations, shortness of breath. He denies changes to sleep, diet, exercise. Related Data Home Medications Medication Instructions Recorded Confirmed nebivolol 10 mg tablet (Bystolic) 10 mg PO DAILY htn 01/09/20 11/29/21 Previous Rx's Medication Instructions Recorded meclizine 12.5 mg tablet 12.5 mg PO BID PRN dizziness #60 07/16/20 tabs topiramate 100 mg tablet 100 mg PO DAILY migraine #30 tabs 07/16/20 benzonatate 100 mg capsule 100 mg PO TIDP PRN Cough #30 caps 10/21/21 ondansetron 4 mg disintegrating 4 mg PO Q8H PRN Nausea #20 tabs 10/21/21 tablet Allergies Allergy/AdvReac Type Severity Reaction Status Date / Time No Known Allergies Allergy Verified 07/16/20 14:22 PFSH [facility] Social History Smoking Status: Never smoker alcohol intake: never counseling provided: none substance use type: denies use current occupational status: employed Travel in the last 8 weeks: None household members: none housing: house caffeine: Yes ROS Obtained: Yes All systems reviewed &
--- NOTE | 2021-11-29 06:26 | ECG_ITS ---
APPROVED REPORT Exam: Resting ECG HR:80 bpm ECG Measurements Heart Rate 80 AXES CO 151 P 91 QRSd 84 QRS 59 QT 357 T 37 QTc 394 Conclusion SINUS RHYTHM NORMAL ECG UNCONFIRMED REPORT Electronically signed by : Viet Olea MD 11/29/2021 16:36:08
[2021-11-29 06:31] VITALS: BP 138/80; PULSE 79; RESP 16; TEMP 36.6; O2SAT 98
[2021-11-29 06:51] VITALS: BP 138/80; PULSE 74; RESP 18; TEMP 36.6; O2SAT 99
== END 2021-11-29 06:56 | disposition home or self-care (01) ==
PROVIDERS: Emergency Provider Emergency Medicine; PCP Family Medicine
DX: I10 Essential (primary) hypertension (principal); R42 Dizziness and giddiness; R05.9 Cough, unspecified; R11.0 Nausea; Z79.899 Other long term (current) drug therapy
CPT/HCPCS: 93005; 99284

== ENCOUNTER → 2022-01-10 06:11 | Outpatient (CLI) | payer BC, SELFPAY ==
--- NOTE | 2022-01-10 08:44 | HMH.ITSHM ---
Current Home Medications as stated by this patient Austin Larsen or senior customer service representative. []NEBIVOLOL LOSARTAN CELECOXIB
== END ==
PROVIDERS: PCP Family Medicine; Visit Provider Nurse Practitioner
DX: R42 Dizziness and giddiness (principal); R00.2 Palpitations; I10 Essential (primary) hypertension; R73.03 Prediabetes; R94.31 Abnormal electrocardiogram [ECG] [EKG]; Z87.891 Personal history of nicotine dependence
CPT/HCPCS: 78452; 93017; 93308; A9502

== ENCOUNTER 2022-06-15 16:00 | Outpatient (RCR) | payer BC, SELFPAY | END 2022-06-15 16:05 | disposition home or self-care (01) | LOC: PT 16:00 | PROVIDERS: PCP Family Medicine | DX: M25.561 Pain in right knee (principal) | CPT/HCPCS: 97010; 97014; 97016; 97110; 97163; 97164; 97530; G0283 ==

== ENCOUNTER → 2022-10-18 11:42 | Outpatient (CLI) | payer OTHER, BC, SELFPAY ==
--- NOTE | 2022-10-18 11:51 | XR_ITS ---
FINAL REPORT CLINICAL HISTORY: ACUTE PAIN FINDINGS: 2 views of the left hip and an AP pelvis were obtained. There is no acute fracture or dislocation. There has been left hip arthroplasty. There are degenerative changes of the lower lumbar spine. IMPRESSION: No acute process. Reviewed, Interpreted and Dictated by Jose F Anderson III, MD Transcribed by Armani Landis Authenticated and [facility]
--- NOTE | 2022-10-18 11:52 | XR_ITS ---
FINAL REPORT CLINICAL HISTORY: ACUTE PAIN FINDINGS: 3 views of the left shoulder were obtained. There is no acute fracture or dislocation. There is mild AC joint degenerative change. There are no soft tissue abnormalities. IMPRESSION: No acute process. Reviewed, Interpreted and Dictated by Jose F Anderson III, MD Transcribed by Armani Landis Authenticated and [facility]
== END ==
PROVIDERS: PCP Family Medicine; Visit Provider Family Medicine
DX: M25.512 Pain in left shoulder (principal); M25.552 Pain in left hip
CPT/HCPCS: 73030; 73502

== ENCOUNTER → 2022-10-24 15:00 | Outpatient (CLI) | payer BC, SELFPAY ==
[2022-10-24 15:11] LABS: Adenovirus F 40/41, stool Not Detected (NotDetected); Astrovirus Not Detected (NotDetected); Campylobacter Not Detected (NotDetected); Clostridium Difficile A/B, PCR Not Detected (NotDetected); Cryptosporidium Not Detected (NotDetected); Cyclospora Cayetanesis Not Detected (NotDetected); Entamoeba histolytica Not Detected (NotDetected); Enteroaggregative E coli Not Detected (NotDetected); Enteropathogenic E coli Not Detected (NotDetected); Enterotoxigenic E coli Not Detected (NotDetected); Giardia lamblia Not Detected (NotDetected); Norovirus Not Detected (NotDetected); Plesimonas Shigalloides, PCR Not Detected (NotDetected); Rotavirus A Not Detected (NotDetected); Salmonella, PCR Not Detected (NotDetected); Sapovirus Not Detected (NotDetected); Shiga-like toxin E coli Not Detected (NotDetected); Shigella Enterovasive E coli Not Detected (NotDetected); Vibrio Cholerae Not Detected (NotDetected); Vibrio, PCR Not Detected (NotDetected); Yersinia Entercolitica, PCR Not Detected (NotDetected)
[2022-10-30 16:08] LABS: Pancreatic Elastase, Fecal 491 (>200)
== END ==
PROVIDERS: PCP Family Medicine; Visit Provider Nurse Practitioner Family
DX: R19.4 Change in bowel habit (principal); R15.2 Fecal urgency; R19.7 Diarrhea, unspecified; K52.9 Noninfective gastroenteritis and colitis, unspecified; R14.0 Abdominal distension (gaseous)
CPT/HCPCS: 82656; 87507

== ENCOUNTER 2023-02-10 13:49 | Outpatient (CLI) | payer BC, SELFPAY ==
[2023-02-10 14:38] LABS: Chloride 102 mmol/L (98-107)
[2023-02-10 14:39] LABS: Potassium 4.2 mmoL/L (3.5-5.1); Sodium 139 mmol/L (136-145)
[2023-02-10 14:41] LABS: Blood Urea Nitrogen 20 mg/dl (9-20); Estimated Glomerular Filt Rate 75 ml/min (>60); GFR (African American) 91 ML/MIN (>60)
[2023-02-10 14:42] LABS: Anion Gap 8.2 mEq/L (5-15); Calcium 9.1 mg/dl (8.4-10.2); Carbon Dioxide 33 mmol/L (22.0-30.0); Glucose 83 mg/dl (74-100)
== END 2023-02-10 23:59 ==
LOC: LAB 13:50
PROVIDERS: PCP Family Medicine; Visit Provider Physician Assistant
DX: R42 Dizziness and giddiness (principal); I27.21 Secondary pulmonary arterial hypertension; I51.9 Heart disease, unspecified; Z87.891 Personal history of nicotine dependence
CPT/HCPCS: 36415; 80048

== ENCOUNTER 2023-06-22 15:41 | Outpatient (CLI) | payer BC, SELFPAY ==
[2023-06-22 16:38] LABS: Basophils % 0.5 % (0.1-2.0); Eosinophils # 0.1 K/mm3 (0.0-0.4); Eosinophils % 1.1 % (0.1-12.0); Hematocrit 43.6 % (42.0-52.0); Hemoglobin 13.9 g/dL (14.1-18.0); Lymphocytes # 3.2 K/mm3 (0.7-4.5); Lymphocytes % 40.2 % (10-50); Mean Corpuscular HGB Conc 31.8 g/dL (31.8-35.4); Mean Corpuscular Hemoglobin 32.5 pg (27.0-31.2); Mean Corpuscular Volume 102.4 fl (80-94); Mean Platelet Volume 7.8 fl (7.4-10.4); Monocytes # 0.5 K/mm3 (0.1-1.0); Monocytes % 6.6 % (1.7-9.3); Neutrophils # 4.1 K/mm3 (1.8-7.8); Neutrophils % 51.5 % (37.0-80.0); Platelet Count 244 K/mm3 (142-424); Red Blood Count 4.26 M/mm3 (4.60-6.20); Red Cell Distribution Width 13.5 % (11.5-17.5); White Blood Count 7.9 K/mm3 (4.8-10.8)
[2023-06-22 16:57] LABS: Alanine Aminotransferase 23 U/L (12-78); Albumin Level 4.4 g/dl (3.5-5.0); Alkaline Phosphatase 59 U/L (38-126); Anion Gap 13.5 mEq/L (5-15); Aspartate Amino Transferase 33 U/L (17-59); Bilirubin,Direct 0.3 mg/dl (0.0-0.4); Bilirubin,Indirect 0.3 mg/dL (0.0-0.9); Bilirubin,Total 0.6 mg/dl (0.2-1.3); Bilirubin,Unconjugated 0.4 mg/dL (0.0-1.1); Blood Urea Nitrogen 20 mg/dl (9-20); Calcium 9.7 mg/dl (8.4-10.2); Carbon Dioxide 30 mmol/L (22.0-30.0); Chloride 99 mmol/L (98-107); Chol/HDL Ratio 2.1 (1-3.5); Cholesterol 213 mg/dl (140-200); Estimated Glomerular Filt Rate 75 ml/min (>60); GFR (African American) 91 ML/MIN (>60); Glucose 93 mg/dl (74-100); HDL Cholesterol 100 mg/dl (40-60); Magnesium 2.1 mg/dl (1.6-2.3); Potassium 4.5 mmoL/L (3.5-5.1); Sodium 138 mmol/L (136-145); Total Protein,Serum 7.6 g/dl (6.3-8.2); Triglycerides 47 mg/dl (30-150); VLDL Cholesterol 9 mg/dL (0-40)
[2023-06-22 17:12] LABS: Free T4 (Free Thyroxine) 1.04 ng/dl (0.78-2.19)
[2023-06-22 17:14] LABS: 25-OH Vitamin D, Total 17.1 ng/mL (30-100)
[2023-06-22 17:22] LABS: Hemoglobin A1C 5.5 % (4.0-6.0)
[2023-06-22 17:28] LABS: Thyroid Stimulating Hormone 1.15 uIU/mL (0.465-4.68)
== END 2023-06-22 23:59 | disposition home or self-care (01) ==
LOC: LAB 15:42
PROVIDERS: PCP Nurse Practitioner; Visit Provider Nurse Practitioner
DX: I27.21 Secondary pulmonary arterial hypertension (principal); R42 Dizziness and giddiness; I11.9 Hypertensive heart disease without heart failure; R94.31 Abnormal electrocardiogram [ECG] [EKG]; Z13.1 Encounter for screening for diabetes mellitus; Z87.891 Personal history of nicotine dependence; E55.9 Vitamin D deficiency, unspecified; Z68.39 Body mass index [BMI] 39.0-39.9, adult
CPT/HCPCS: 36415; 80048; 80061; 80076; 82306; 83036; 83735; 84439; 84443; 85025

== ENCOUNTER 2024-04-05 14:20 | Outpatient (CLI) | payer MEDICARE, SELFPAY ==
--- NOTE | 2024-04-05 14:24 | CA_ITS ---
APPROVED REPORT EXAM: Comprehensive 2D, Doppler, and color-flow Echocardiogram Ad Operations Coordinator: Lexie Herrera RT(R) Ht: 6 ft 0 in Wt: 291lbs BSA: 2.50 BP: 133/80 mmHg Indications: edema, pulmonary HTN, HTN, ex smoker 2D Dimensions LVEF (Bains's) 58.30 % M: 52 - 72 LV Volume 133.00 mL M: 62 - 150 LV Volume Index 53.2 mL/m2 M: 34 - 74 LA Volume 37.80 mL LA Volume Index 15.12 mL/m2 (M/F) 16-34 EF AP4 60.00 % EF AP2 56.2 % EF BP 58.3 % GL Strain -20.1 % M-Mode Dimensions RVDd 3.16 cm (0.9-2.6) LA Diam 3.66 cm (1.9-4.0) LVDd 4.83 cm (3.5-5.7) LVDs 3.04 cm (3.5-5.7) IVSd 0.57 cm (0.6-1.1) PWd 0.68 cm (0.6-1.1) EF (Teich) 66.80% FS 37.10% EDV (Teich) 109.10 mL ESV (Teich) 36.20 mL LV Diastology E Decel Time 150 (160-240 msec) E/A Ratio 1.1 Mitral Valve MV E Max Caleb. 92.0 (40-130 cm/s) MV A Velocity 81.0 (40-130 cm/s) E/A Ratio 1.14 MV PHT 44.0 ms Left Ventricle The left ventricle is normal size. The left ventricular systolic function is normal. The left ventricular ejection fraction is within the normal range. There is increased LV wall thickness. There is normal LV segmental wall motion. The left ventricular diastolic function is normal. LVEF is 55%. Right Ventricle The right ventricle is normal size. The right ventricular systolic function is normal. Atria The left atrium size is normal. The right atrium size is normal. There is no Doppler evidence of interatrial shunt. Aortic Valve Aortic valve is mildly thickened. There is no aortic valvular stenosis. Trace aortic regurgitation. Mitral Valve The mitral valve leaflets are mildly thickened. No evidence of mitral valve stenosis. Mild mitral regurgitation. Tricuspid Valve Tricuspid valve is grossly normal in structure and function. Trace tricuspid regurgitation. There is insufficient TR jet to estimate RVSP. Pulmonic Valve The pulmonary valve is normal in structure. Amount of regurgitation. Great Vessels The aortic root is normal in size. IVC is normal in size and collapses >50% with inspiration. Pericardium There is no pericardial effusion. Other Information Study Quality: Fair Conclusion Normal biventricular systolic function. Mild MR. Electronically signed by : Gunjan Jacobo MD 04/16/2024 10:13:01
== END 2024-04-05 23:59 | disposition home or self-care (01) ==
LOC: RT 14:21
PROVIDERS: PCP Family Medicine; Visit Provider Physician Assistant
DX: I34.0 Nonrheumatic mitral (valve) insufficiency (principal); I27.21 Secondary pulmonary arterial hypertension; I51.9 Heart disease, unspecified; R60.9 Edema, unspecified
CPT/HCPCS: 93306

== ENCOUNTER 2024-04-11 15:16 | Outpatient (CLI) | payer MEDICARE, SELFPAY ==
[2024-04-11 20:08] LABS: Chloride 103 mmol/L (98-107)
[2024-04-11 20:09] LABS: Potassium 4.2 mmoL/L (3.5-5.1); Sodium 138 mmol/L (136-145)
[2024-04-11 20:12] LABS: Anion Gap 9.2 mEq/L (5-15); Blood Urea Nitrogen 21 mg/dl (9-20); Calcium 9.4 mg/dl (8.4-10.2); Carbon Dioxide 30 mmol/L (22.0-30.0); Estimated Glomerular Filt Rate 67 ml/min (>60); GFR (African American) 81 ML/MIN (>60); Glucose 90 mg/dl (74-100)
[2024-04-11 20:21] LABS: NT Pro Brain Natriuretic Pep. 119 pg/mL (0-125)
== END 2024-04-11 23:59 | disposition home or self-care (01) ==
LOC: LAB 15:17
PROVIDERS: PCP Family Medicine; Visit Provider Physician Assistant
DX: R60.9 Edema, unspecified (principal); Z79.899 Other long term (current) drug therapy
CPT/HCPCS: 36415; 80048; 83880

== ENCOUNTER 2024-06-04 14:00 | Outpatient (RCR) | payer MEDICARE, SELFPAY | END 2024-06-04 23:59 | disposition home or self-care (01) | LOC: PT 14:00 | PROVIDERS: PCP Family Medicine; Visit Provider Physician Assistant | DX: M17.11 Unilateral primary osteoarthritis, right knee (principal) | CPT/HCPCS: 97014; 97110; 97163; 97530; G0283 ==

== ENCOUNTER 2024-06-25 15:00 | Outpatient (RCR) | payer MEDICARE, SELFPAY | END 2024-06-25 23:59 | disposition home or self-care (01) | LOC: PT 15:00 | PROVIDERS: PCP Family Medicine; Visit Provider Physician Assistant | DX: M17.11 Unilateral primary osteoarthritis, right knee (principal) | CPT/HCPCS: 97110; 97530 ==

== ENCOUNTER 2024-07-10 14:00 | Outpatient (RCR) | payer MEDICARE, SELFPAY | END 2024-07-10 23:59 | disposition home or self-care (01) | LOC: PT 14:00 | PROVIDERS: PCP Family Medicine; Visit Provider Physician Assistant | DX: M17.11 Unilateral primary osteoarthritis, right knee (principal) | CPT/HCPCS: 97110; 97530 ==

== ENCOUNTER 2024-07-31 07:18 | Outpatient (CLI) | payer MEDICARE, SELFPAY ==
--- NOTE | 2024-07-31 | US_ITS ---
FINAL REPORT CLINICAL HISTORY: AAA SCREENING FINDINGS: Limited sonographic images of the abdominal aorta were obtained. The aorta measures up to 1.7 cm. There is no evidence of abdominal aortic aneurysm. Minimal plaque disease is identified. IMPRESSION: No evidence of abdominal aortic aneurysm. Reviewed, Interpreted and Dictated by Frandy Peña MD Transcribed by Elisha Soto Authenticated and [facility]
--- OUTSIDE RECORDS SUMMARY | 2024-07-31 02:20 | XMS_ITS | Continuity of Care Document ---
Author Name [facility] Organization [facility] Care Team Providers Care Raymond Mill Operator Name Role Phone [facility] Unavailable Unavailable Problems Combined list of problems from Department of [facility] and [facility] facilities. It does not include entries that were removed or entered in error. Problem Status Onset Date Problem Type Date of Resolution Comments Source Exposure to potentially hazardous substance ([facility] [id number]) Active Condition [facility] N-CD [facility] Gastro-esophageal reflux disease with esophagitis Active Condition Oct 15 0 Entered By: MARGE BRISCOE Comment: EGD 07/09/2018: achalasia w/out significantly increased LES resting tone but aperistalsis present, Grade A reflux esophagitis, mild linear reactive gastropathy [facility] History of colonoscopy Active Condition Oct 16, 2019 Entered By: MARGE BRISCOE Comment: 07/09/2018: normal colonoscopy per Dr. Mistry w/repeat rec in 10 years [facility] Hypertension Active Condition [facility] Osteoarthritis of joint of left shoulder region Active Condition [facility] Osteoarthritis of left hip joint Active Condition [facility] Right knee pain (SNOMED CT [id number]) Active Condition [facility] Sleep apnea Active Condition [facility] Venous insufficiency of leg Active Condition [facility] Diagnosis: ICD-10-CM I10 Essential (primary) hypertension Active Diagnosis [facility] Medications Combined list of outpatient medications from Department of [facility] and [facility] facilities.Medications provided include 1) outpatient medications from the last 15 months, and 2) patient-reported medications. Medication Details Route Status Patient Instructions Prescription Expires Prescription Number Last Dispense Date Ordering Provider Order Date Order Qty Source HYDROCHLORO THIAZIDE 25MG TAB TAKE ONE TABLET BY MOUTH MONDAY, , AND MONDAY ORAL ACTIVE DENISHA BRISCOE 2023 [place] [facility] LOSARTAN 50MG TAB TAKE ONE TABLET BY MOUTH DAILY ORAL ACTIVE BRISCOE,NA NCY K 2023 [place] [facility] NEBIVOLOL 10MG TAB TAKE ONE TABLET BY MOUTH DAILY ORAL ACTIVE BRISCOE,NA NCY K 2023 [place] [facility] Immunizations Combined list of available immunizations from the Department of Defense and Veterans Affairs facilities. 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 Status Comments Source INFLUENZA, HIGH-DOSE, TRIVALENT, PF 5 2023 135 complet ed HISTORICA L INFORMATI ON - FROM OTHER REGISTRY, [place] [facility] COVID-19 (Quizrr), MRNA, LNP-S, PF, YEE-SUCROSE, 30 MCG/0.3 ML (AGES 12+ YEARS) 1 2022 TERESA BORREGO LEFT DELTO ID [id number] 309 complet ed ADMINISTE RED AT [place], [place] [facility] INFLUENZA, INJECTABLE, QUADRIVALENT, PRESERVATIVE FREE 2022 MICHAEL VAZQUEZ LEFT DELTO ID [id number] 150 complet ed ADMINISTE RED AT [place], [place] [facility] INFLUENZA, INJECTABLE, QUADRIVALENT, PRESERVATIVE FREE 2021 150 complet ed [place] [facility] COVID-19 (PFIZER), MRNA, LNP-S, PF, 30 MCG/0.3 ML DOSE, YEE-SUCROSE (AGES 12+ YEARS) 3 2021 217 complet ed HISTORICA L INFORMATI ON - FROM OTHER REGISTRY, [place] [facility] COVID-19 (PFIZER), MRNA, LNP-S, PF, 30 MCG/0.3 ML DOSE 3 2020 NONE 208 complet ed PFR; [id number]; 2 [place] [facility] INFLUENZA, UNSPECIFIED FORMULATION 2020 88 complet ed [place] [facility] COVID-19 (PFIZER), MRNA, LNP-S, PF, 30 MCG/0.3 ML DOSE 2 2020 208 complet ed [place] [facility] COVID-19 (PFIZER), MRNA, LNP-S, PF, 30 MCG/0.3 ML DOSE 1 2020 208 complet ed [place] [facility] ZOSTER RECOMBINANT 2 2019 187 complet ed [place] [facility] ZOSTER RECOMBINANT 1 2019 187 complet ed [place] [facility] INFLUENZA, INJECTABLE, QUADRIVALENT 2 2018 158 complet ed HISTORICA L INFORMATI ON - FROM OTHER REGISTRY, [place] [facility] INFLUENZA A & B (HISTORICAL) 2016 88 complet ed [place] [facility] INFLUENZA, INJECTABLE, QUADRIVALENT, PRESERVATIVE FREE 1 2015 150 complet ed HISTORICA L INFORMATI ON - FROM OTHER REGISTRY, [place] [facility] TDAP 2012 115 complet ed [place] [facility] TD (ADULT), 2 LF TETANUS TOXOID, PRESERVATIVE FREE, ADSORBED 1 1996 09 complet ed HISTORICA L INFORMATI ON - FROM OTHER REGISTRY, [place] [facility] Vital Signs Combined list of inpatient and outpatient Vital Signs from Department of Defense and Veterans Affairs, ranging from 12 months to all on record, depending upon the facility. Vital Sign Value Date Comments Source SYSTOLIC BLOOD PRESSURE 99 11/21/2023 13:35:26 [facility] DIASTOLIC BLOOD PRESSURE 65 11/21/2023 13:35:26 [facility] PULSE OXIMETRY 97 11/21/2023 13:35:26 [facility] WEIGHT 290 11/21/2023 13:35:26 [place] [facility] BMI 39 kg/m2 11/21/2023 13:35:26 [place] [facility] PAIN 0 11/21/2023 13:35:26 [place] [facility] HEIGHT 72 11/21/2023 13:35:26 [place] [facility] TEMPERATURE 97.2 11/21/2023 13:35:26 SHIRLENE POORNIMA [facility] PULSE 66 11/21/2023 13:35:26 CESAR MARES [facility] RESPIRATION 14 11/21/2023 13:35:26 SHIRLENE NOGUERA [facility] Encounters Combined list of: 1) Encounters from Department of [facility] Affairs facilities going backup to the last 18 months, not all [place] inpatient encounters are included; 2) Encounters from the Department of [facility] facilities going backup to 280 months. Location Location Details Encounter Type Encounter Number Reason For Visit Attending Provider ADM Date DC Date Status Disposition Source [facility] Outpatient Encounter [id number] 11/12 [place] [facility] OFFICE O/P EST MOD 30 MIN [id number] Diagnos is: ICD-10- CM I10 Essenti al (primar y) hyperte nsion BRISCOE,NAN CY K 11/20 [place] [facility] Outpatient Encounter [id number] 01/01 [place] Outpatient Encounter [id number] 01/02 [place] [facility] Social History Combined list of available smoking, tobacco, and other social history from Department of [facility] and [facility] facilities. Social History Type Response Date Comment Sourc e Tobacco smoking status NHIS [place]-TOBACCO FORMER USER 11/21/2023 [facility] History of tobacco use MO-TOBACCO QUIT 15 YRS OR MORE 11/21/2023 [facility] History of tobacco use MO-TOBACCO FORMER USER 12/06/2022 [facility] History of tobacco use MO-TOBACCO FORMER USER 11/10/2021 [facility] History of tobacco use MO-TOBACCO QUIT 5 TO < 15 YRS 11/20/2020 [facility] History of tobacco use MO-TOBACCO FORMER USER 10/07/2019 [facility] History of tobacco use V9 QUIT TOBACCO >7 YEARS AGO 11/29/2016 [facility]
--- OUTSIDE RECORDS SUMMARY | 2024-07-31 07:21 | XMS_ITS | Clinical Summary ---
Author Organization [facility] Address [address] [place] [address] Care Team Providers Care Play Leader Name Role Phone Unavailable Primary Care Provider Unavailabl e Social History Tobacco Use Types Packs/Day Years Used Date Smoking Tobacco: Never Assessed Sex and Gender Information Value Date Recorded Sex Assigned at Not on file Legal Sex Male 1:57 PM EST Gender Identity Not on file Sexual Orientation Not on file Plan of Treatment Not on file Insurance [employer] Member Subscriber Plan / Payer (Ef fective 2019-Present) Name:Austin Larsen .1.2 Relation to Subscriber:Self Name:Austin Larsen .1.2 Payer ID:Not on file Group ID:Not on file Type:Indemnity Address: [address] [place] [address]
--- OUTSIDE RECORDS SUMMARY | 2024-07-31 07:21 | XMS_ITS | Clinical Summary ---
Author Organization Healthcare Address [address] [place] [address] Care Team Providers Care Manager Hiv Name Role Phone Dionisio Duarte MD Primary Care Provider [phone] Allergies No known active allergies Medications hydroCHLOROthiaz ger (HYDRODiuril) 25 MG tablet Take 1 tablet (25 mg) by mouth Every other day. 11/21/2023 Active losartan (Cozaar) 50 MG tablet Take 1 tablet (50 mg) by mouth 1 (one) time each day. 11/30/2023 Active nebivolol (Bystolic) 10 MG tablet Take 1 tablet (10 mg) by mouth 1 (one) time each day. 11/30/2023 Active sildenafil (Viagra) 100 MG tablet Take 1 tablet (100 mg) by mouth if needed. 12/12/2023 Active Family History Medical History Relation Name Comments Diabetes Father Liver cancer Mother Relation Name Status Comments Father Mother Social History Tobacco Use Types Packs/Day Years Used Date Smoking Tobacco: Former Cigarettes Smokeless Tobacco: Never Tobacco Cessation:Counseling Given: Not Answered Alcohol Use Standard Drinks/Week Comments Yes 0 (1 standard drink = 0.6 oz pur e alcohol) PHQ-2 Answer Date Recorded Patient Health Questionnaire-2 Score 0 01/03/2024 Sex and Gender Information Value Date Recorded Sex Assigned at Not on file Legal Sex Male 6:56 PM EDT Gender Identity Not on file Sexual Orientation Not on file Last Filed Vital Signs Vital Sign Reading Time Taken Comments Blood Pressure 110/76 01/03/2024 10:26 AM EST Pulse 65 01/03/2024 10:26 AM EST Temperature - - Respiratory Rate - - Oxygen Saturation 97% 01/03/2024 10:26 AM EST Inhaled Oxygen Concentration - - Weight 127 kg (280 lb) 01/03/2024 10:26 AM EST Height 182.9 cm (6') 01/03/2024 10:26 AM EST Body Mass Index 37.97 01/03/2024 10:26 AM EST Plan of Treatment Health Maintenance Due Date Last Done Comments [facility]-Hepatitis C Screening 1960 [facility]-Medicare Annual Wellness (AWV) 1960 [facility]-Infant/Child/Adol SDOH Screenings 1960 [facility]- SDOH Screenings 1976 [facility]-Adult SDOH Screenings 1976 CT Colonography 08/06/2003 Colonoscopy 08/06/2003 FIT-DNA 08/06/2003 FIT 08/06/2003 FOBT 08/06/2003 Sigmoidoscopy 08/06/2003 [facility]-Colorectal Cancer Screening 08/06/2003 [facility]-Pneumococcal Vaccine: 50+ Years (1 of 1 - PCV) 2008 [facility]-Zoster Vaccines (1 of 2) 2008 [facility]-DTaP,Tdap,and Td Vaccines (2 - Td or Tdap) 02/06/2022 02/07/2012, 04/07/1996 [facility]-Abdominal Aortic Aneurysm (AAA) Screening 08/06/2023 [id number] Vaccine ( season) 2023 12/06/2022, 07/13/2021, 12/08/2020, Additional history exists [facility]-Depression Screening 01/02/2025 01/03/2024 [facility]-RSV Vaccine: 60+ Years or (1 - 1-dose 75+ series) 2033 [facility]-Influenza Vaccine Completed 11/13/2023 , 11/29/2022, 11/10/2021, Additional history exists [facility]-Obesity Intervention Completed 01/03/2024 HPV Vaccines Aged Out No longer eligi ble based on patient's age to complete this topic [facility]-HIB Vaccines Aged Out No longer e ligible based on patient's age to complete this topic [facility]-Hepatitis A Vaccines Aged Out No longer eligible based on patient's age to complete this topic [facility]-IPV Vaccines Aged Out No longer e ligible based on patient's age to complete this topic [facility]-Rotavirus Vaccines Aged Out No lo nger eligible based on patient's age to complete this topic Insurance [employer] Care Teams Manager Hiv Relationship Specialty Start Date End Date Dionisio Duarte MD [address] [place] [address] [address] [place] [address] PCP - General 11/22/21
--- OUTSIDE RECORDS SUMMARY | 2024-07-31 07:21 | XMS_ITS | Data Portability ---
Author Organization [facility] - Sha roberts MD, Main Office Address [address] [place] [address], [facility] [address] [place] [address] Care Team Providers Care Rn Maternity Name Role Phone ARIEL ADAN Primary Care Provider Assessment No assessment recorded. Plan of Treatment Reminders Order Date Submit Date Provider Last Modified By Organization Details Last Modified Time Details Appointments None record ed. Lab None record ed. Referral None record ed. Procedures None record ed. Surgeries None record ed. Imaging None record ed. Medication Orders None record ed. Patient TargetsNo targets recorded. Patient Instructions Encounter Date Encounter Id Patient Instructions Last Modified By Organization Details Last Modified Time 01/16/2024 [id number] Neck Pain: Care Instructions [id number] Not available 01/16/2024 14:40:01 Reason for Referral None Reported. Results Created Date Observation Date Name Description Value Unit Range Abnormal Flag Note LastModifiedBy Organization Detail LastModifiedTime 01/16/20 24 01/16/2024 elect romyo gram + nerve condu ction study No observ ation record ed. BARCODE Not Available 2023 14:46:17 Result Notes None recorded. Problems No Known Problems Procedures Surgical History Date Name Laterality Status Provider Name and Address Organization Details Recorded Time 01/16/2024 NCV/EMG completed Sacha Scott MD 01/16/2024 14:39:37 Imaging Results None recorded. Procedure Notes None recorded. Medical Equipment None Reported. Allergies No known drug allergies Medications Name Sig Start Date Stop Date Status Note LastModified by Organization Details LastModified Time losartan 50 mg tablet TAKE 1 TABLET BY MOUTH ONCE DAILY active Not Available Not Available No t Available ibuprofen 800 mg tablet TAKE 1 TABLET BY MOUTH THREE TIMES DAILY WITH MEALS active Not Available Not Available N ot Available sildenafil 100 mg tablet TAKE 1 TABLET BY MOUTH ONCE DAILY NEEDED FOR ERECTILE DYSFUNCTION active Not Available Not Available Not Available methocarbamo l 750 mg tablet TAKE 1 TABLET BY MOUTH THREE TIMES DAILY NEEDED FOR MUSCLE SPASM active Not Available Not Available No t Available hydrochlorot hiazide 25 mg tablet TAKE 1 TABLET BY MOUTH EVERY OTHER DAY active Not Available Not Available No t Available methylpredni solone 4 mg tablets in a dose pack TAKE BY MOUTH DIRECTED ON INSIDE OF PACKAGE active Not Available Not Available No t Available tadalafil 10 mg tablet TAKE 1 TO 2 TABLETS BY MOUTH ONCE DAILY NEEDED active Not Available Not Available No t Available sildenafil (pulmonary hypertension ) 20 mg tablet TAKE 5 TABLETS BY MOUTH ONCE DAILY NEEDED active Not Available Not Available No t Available nebivolol 10 mg tablet TAKE 1 TABLET BY MOUTH ONCE DAILY active Not Available Not Available No t Available Vitals None Recorded Social History None recorded. Functional Status None recorded. Mental Status None recorded. Family History Nothing Reported. Medical History No medical history recorded. Past Encounters Encounter ID Performer Location Encounter Start Date Encounter Closed Date Diagnosis/Indication Diagnosis SNOMED-CT Code Diagnosis ICD10 Code Diagnosis Note [id number] Sha Scott MD Main Office [address] [facility], [facility] [address] [place] [address] 01/16/2024 13:28:25 01/16/2024 14:41:45 Cervical radiculopathy [id number] M54.12 Mild acute and chronic left C6 radiculopa thy. Health Concerns Section Related Observation LastModified by Organization Detai ls LastModified Time None Recorded Concern Status LastModified by Organization Details LastModified Time None Recorded Advance Directives Directive None Recorded Payers Insurance Date Sequence Insurance Name Policy Number Policy Catherine Covered Member ID Catherine Member ID Guarantor Name 01/16/2024 1 [place]MEDICARE REPLACEMENT HMO) [id number] Austin Larsen [id number] Austin Larsen
--- OUTSIDE RECORDS SUMMARY | 2024-07-31 07:22 | XMS_ITS | Data Portability ---
Author Organization [facility] Deni & ALEYDA Bo ADMIN Address [address] [place] [id number] Assessment No assessment recorded. Plan of Treatment Reminders Order Date Submit Date Provider Last Modified By Organization Details Last Modified Time Details Appointments OV EST 15 025 09:15AM Dali Musa MD Not available Not available Not available Lab None record ed. Referral None record ed. Procedures None record ed. Surgeries None record ed. Imaging None record ed. Medication Orders None record ed. Patient TargetsNo targets recorded. Patient InstructionsNo instructions recorded. Reason for Referral None Reported. Procedures Surgical History Date Name Laterality Status Provider Name and Address Organization Details Recorded Time 5 Cerumen removal with microscope completed Dali Musa MD [facility], [place], [address], [facility] - ALEYDA - [place] & [place] 02/20/2024 16:30:35 4 Cerumen removal with microscope completed Stan BEATTY - ALEYDA [facility] & [place] 08/02/2023 09:44:28 3 Cerumen removal with microscope completed Stan BEATTY - ALEYDA [facility] & [place] 01/27/2023 13:26:07 3 Cerumen removal with microscope completed Stan BEATTY - LPNT [facility] & [place] 07/28/2022 10:35:55 2 Cerumen removal with microscope completed Stan BEATTY - LPBERNARDA [facility] & [place] 01/27/2022 11:53:08 Imaging Results None recorded. Procedure Notes None recorded. Medical Equipment None Reported. Allergies No known drug allergies Medications Name Sig Start Date Stop Date Status Note LastModified by Organization Details LastModified Time losartan 50 mg tablet TAKE 1 TABLET BY MOUTH ONCE DAILY active Not Available Not Available No t Available amoxicillin 500 mg capsule TAKE 1 CAPSULE BY MOUTH THREE TIMES DAILY 07/28 completed Not Available Not Available Not Available ibuprofen 800 mg tablet TAKE 1 TABLET BY MOUTH THREE TIMES DAILY WITH MEALS 02/19 completed Not Available Not Available Not Available ondansetron HCl 4 mg tablet TAKE 1 TABLET BY MOUTH EVERY 8 HOURS NEEDED FOR NAUSEA 08/01 completed Not Available Not Available Not Available prednisone 20 mg tablet TAKE 1 TABLET BY MOUTH TWICE DAILY FOR 5 DAYS 12/28 completed Not Available Not Available Not Available sildenafil 100 mg tablet TAKE 1 TABLET BY MOUTH ONCE DAILY NEEDED FOR ERECTILE DYSFUNCTI ON active Not Available Not Available No t Available amoxicillin 875 mg tablet TAKE 1 TABLET BY MOUTH TWICE DAILY FOR 5 DAYS 12/28 completed Not Available Not Available Not Available methocarbam ol 750 mg tablet TAKE 1 TABLET BY MOUTH THREE TIMES DAILY NEEDED FOR MUSCLE SPASM active Not Available Not Available No t Available dicyclomine 20 mg tablet TAKE 1 TABLET BY MOUTH EVERY 8 HOURS NEEDED FOR ABDOMINAL PAIN 08/01 completed Not Available Not Available Not Available benzonatate 100 mg capsule TAKE 1 CAPSULE BY MOUTH THREE TIMES DAILY NEEDED FOR COUGH 12/28 completed Not Available Not Available Not Available oseltamivir 75 mg capsule 12/28 completed Not Available Not Available Not Available lidocaine 5 % topical patch APPLY ONE PATCH TOPICALLY TO CLEAN, DRY SKIN. LEAVE ON FOR 12 HOURS THEN REMOVE. MUST WAIT AT LEAST 12 HOURS BEFORE APPLYING PATCH(ES) AGAIN. 08/01 completed Not Available Not Available Not Available losartan 25 mg tablet TAKE 1 TABLET BY MOUTH TWICE DAILY 02/19 completed Not Available Not Available Not Available hydroxyzine HCl 25 mg tablet TAKE 1 TABLET BY MOUTH THREE TIMES DAILY NEEDED FOR ANXIETY active Not Available Not Available No t Available hydrochloro thiazide 25 mg tablet TAKE 1 TABLET BY MOUTH EVERY OTHER DAY 02/19 completed Not Available Not Available Not Available methylpredn isolone 4 mg tablets in a dose pack TAKE BY MOUTH DIRECTED ON INSIDE OF PACKAGE 02/19 completed Not Available Not Available Not Available ondansetron 4 mg disintegrat ing tablet DISSOLVE 1 TABLET IN MOUTH EVERY 8 HOURS NEEDED FOR NAUSEA 12/28 completed Not Available Not Available Not Available naproxen 500 mg tablet TAKE 1 TABLET BY MOUTH EVERY 12 HOURS WITH FOOD OR MILK NEEDED 12/28 completed Not Available Not Available Not Available Sucraid 8,500 unit/mL oral solution 08/01 completed Not Available Not Available Not Available tadalafil 10 mg tablet TAKE 1 TO 2 TABLETS BY MOUTH ONCE DAILY NEEDED 08/01 completed Not Available Not Available Not Available sildenafil (pulmonary hypertensio n) 20 mg tablet TAKE 5 TABLETS BY MOUTH ONCE DAILY NEEDED 02/19 completed Not Available Not Available Not Available cholecalcif oziel (vitamin D3) 1,250 mcg (50,000 unit) capsule TAKE 1 CAPSULE BY MOUTH ONCE A WEEK FOR 30 DAYS 02/19 completed Not Available Not Available Not Available nebivolol 10 mg tablet TAKE 1 TABLET BY MOUTH ONCE DAILY active Not Available Not Available No t Available Vitals Date Recorded Body height Body temperature Body mass index (BMI) Body weight Provider Name and Address Organization Details Last Updated DateTime 02/20/2024 182.88 cm 97.6 [degF] 39.5 kg/m2 533428.[facility] 13:57:40 Date Recorded Body height Body mass index (BMI) Body weight Body temperature Heart rate Systolic blood pressure Diastolic blood pressure Provider Name and Address Organization Details Last Updated DateTime 3 182.88 cm 38.2 kg/m2 553304. 05 g 97.1 [degF] 79 /min 164 mm[Hg] 93 mm[Hg] Pennyjace Nguyenence [facility] 3 10:21:13 Date Recorded Body height Body mass index (BMI) Body weight Body temperature Provider Name and Address Organization Details Last Updated DateTime 08/02/2023 182.88 cm 40.6 kg/m2 551557.12 g 99 [degF] Penny Nguyenence [facility] 08/02/2023 09:29:03 Date Recorded Body height Body mass index (BMI) Body weight Body temperature Heart rate Systolic blood pressure Diastolic blood pressure Provider Name and Address Organization Details Last Updated DateTime 182.88 cm 38.1 kg/m2 169165. 46 g 97 [degF] 97.1 /min 126 mm[Hg] 67 mm[Hg] Penny Cornelius LPNT [facility] & [place] 11:36:27 Date Recorded Body height Provider Name an d Address Organization Details Last Updated DateTime 01/27/2023 182.88 cm Stan Cornelius LPNT - [facility] & [place] 01/27/2023 13:25:09 Social History Question Answer Notes LastModified by Organizat ion Details LastModified Time Tobacco Smoking Status Former Smoker Penny Hector [facility], ROGER[facility] - LPNT [facility] & [place] 01/27/2022 11:37:57 Do You Have An Advance Directive? No Information not available 01/27/2022 Are You Blind Or Do You Have Difficulty Seeing? No Information not available 01/27/2022 What Was The Date Of Your Most Recent Tobacco Screening? 12/28/2021 Information not available 01/27/2022 Are You Passively Exposed To Smoke? No Information not available 01/27/2022 How Much Tobacco Do You Smoke? No Information not available 01/27/2022 How Many Years Have You Smoked Tobacco? 20 Information not available 01/27/2022 Sex: Unknown Functional Status Question Answer Note LastModified by Organizat ion Details LastModified Time Do you use any illicit or recreational drugs? No Information not available 01/27/2022 What is your level of alcohol consumption? Occasional Information not available 01/27/2022 Do you or have you ever used smokeless tobacco? Never used smokeless tobacco Information not available 01/27/2022 What is your exercise level? Occasional Information not available 01/27/2022 Mental Status Question Answer Note LastModified by Organization D etails LastModified Time Do you feel stressed (tense, restless, nervous, or anxious, or unable to sleep at night)? [id number] Information not available 01/27/2022 Family History Nothing Reported. Medical History Condition Response Obesity Y Arthritis Y Hypertension Y Ear or Hearing Problems Y Past Encounters Encounter ID Performer Location Encounter Start Date Encounter Closed Date Diagnosis/Indication Diagnosis SNOMED-CT Code Diagnosis ICD10 Code Diagnosis Note [id number] Dali Musa MD [facility] [address] [address] 01/27/2022 11:30:28 01/27/2022 12:01:12 Impacted cerumen of bilateral ears [id number] 548886 H61.23 Cerumen removed bilaterall y today in the office. Encouraged patient to use a drop of baby oil in each ear 2-3 times a week to keep cerumen soft. Will see the patient back every 6 months for scheduled removal, or sooner if needed. [id number] Dali Musa MD [facility] [place] [id number] 07/28/2022 10:17:23 07/28/2022 10:38:45 Impacted cerumen of bilateral ears [id number] 139077 H61.23 Cerumen removed bilaterall y today in the office. Encouraged patient to use a drop of baby oil in each ear 2-3 times a week to keep cerumen soft. Will see the patient back every 6 months for scheduled removal, or sooner if needed. [id number] Dali Musa MD [facility] [address] [address] 01/27/2023 12:53:04 01/27/2023 13:42:27 Impacted cerumen of bilateral ears [id number] H61.23 Cerumen removed bilaterall y today in the office. Encouraged patient to use a drop of baby oil in each ear 2-3 times a week to keep cerumen soft. Will see the patient back every 6 months for scheduled removal, or sooner if needed. [id number] Dali Musa MD [facility] [address] [place] [address] 08/02/2023 09:14:10 08/02/2023 09:52:26 Impacted cerumen of bilateral ears [id number] 853919 H61.23 Cerumen removed bilaterall y today in the office. Encouraged patient to use a drop of baby oil in each ear 2-3 times a week to keep cerumen soft. Will see the patient back every 6 months for scheduled removal, or sooner if needed. [id number] Dali Musa MD [facility] [place] [address] [place] [address] 02/20/2024 13:51:44 02/20/2024 14:24:56 Impacted cerumen of bilateral ears 8491835802 293053 H61.23 Cerumen removed bilaterall y today in the office. Encouraged patient to use a drop of baby oil in each ear 2-3 times a week to keep cerumen soft. Will see the patient back every 6 months for scheduled removal, or sooner if needed. Health Concerns Section Related Observation LastModified by Organization Detai ls LastModified Time None Recorded Concern Status LastModified by Organization Details LastModified Time None Recorded Advance Directives Directive N: Payers Insurance Date Sequence Insurance Name Policy Number Policy Catherine Covered Member ID Catherine Member ID Guarantor Name 08/02/2023 1 [place]: [employer]NA [employer] OF [facility] [employer] 111 Austin Larsen [id number] Austin Larsen 02/17/2024 1 [place]: PRERNA CHAN OF [facility] [employer] (MEDICARE REPLACEMENT HMO) [id number] Austin Larsen [id number] Austin Larsen Notes Date Note Type Note Provider Name and Address Organization Details Recorded Time 01/27/2022 text/html 61yo male returns to the office today to follow up on his ears. States his ears feel full. Still has tinnitus. Says his ears feel wet when he cleans his ears with tissue. Denies drainage that leaves his ear. Dali Musa MD [address] [facility], [place], [address], [facility] - [place] & [place] 02/04/2022 12:29:50 07/28/2022 text/html 61yo male returns to the office today to follow up on his ears. States his ears feel full. Still has tinnitus. Says his ears feel wet when he cleans his ears with tissue. Denies drainage that leaves his ear.07/28/22 61 yo male in the office today for routine cerumen removal. No concerns or problems with either ear. Dali Musa MD [address], [place], [address], [facility] - LPNT [facility] & [place] 07/28/2022 11:38:48 01/27/2023 text/html 61yo male returns to the office today to follow up on his ears. States his ears feel full. Still has tinnitus. Says his ears feel wet when he cleans his ears with tissue. Denies drainage that leaves his ear.07/28/22 61 yo male in the office today for routine cerumen removal. No concerns or problems with either ear. 01/27/23- patient is here for 6 month cerumen impaction. Denies any other concerns. Dali Musa MD [address], [place], [address], [facility] LPNT [facility] & [place] 01/31/2023 12:01:23 08/02/2023 text/html 01/27/23- patient is here for 6 month cerumen impaction. Denies any other concerns. 08/02/23- 62 yo patient is here for a 6 month cerumen impaction follow up. Denies any other concerns. Dali Musa MD [address], [place], [address], [facility] LPNT [facility] & [place] 08/02/2023 09:55:36 02/20/2024 text/html 01/27/23- patient is here for 6 month cerumen impaction. Denies any other concerns. 08/02/23- 62 yo patient is here for a 6 month cerumen impaction follow up. Denies any other concerns. 02/20/24-Patient is here for 6 month cerumen impaction. Patient denies any other concerns. Dali Musa MD [address], [place], [address], [facility] - LPNT [facility] & [place] 02/20/2024 16:31:04
--- OUTSIDE RECORDS SUMMARY | 2024-07-31 07:22 | XMS_ITS | Data Portability ---
Author Organization [facility] Address [address] [place] [address] Care Team Providers Care Ada Accommodation Consultant Name Role Phone JULISA LLANES Referring Provider Assessment Encounter Date Assessment Date Assessment LastModified by Organization Details LastModified Time 02/29/2024 02/29/2024 HPI: This is a 63-year-old with left arm numbness He was referred by Dr. Oliveira, has a history of left arm numbness and tingling. Denies incontinence or myelopathy. No prior neck surgery. No prior injection therapy. MRI reviewed below. Physical therapy in the past without benefit. Does not use controlled pain medicine. Anticoagulants: None PMHx: Hypertension INJ Hx: None PSHx/Surgical Evaluation: No prior neck surgery IMAGING: EMG/nerve conduction study Left C6 radiculopathy Cervical plain films and straight multilevel spondylosis, no prior cervical MRI The above image findings were discussed with the patient. Current medications include NSAIDs. The patient feels that they receive adequate analgesia and activity improvement with the medication. The patient denies side effects from the medications. UDS was not obtained. ORT, PHQ-9 and SHIVA were reviewed today. LOC report was reviewed today and is appropriate. Based upon the above I would consider the patient to be Low risk. PT The patient completed over six weeks of physical therapy in the past without benefit for their pain ASSESSMENT/PLAN This is a 63-year-old with left arm numbness Presentation is consistent with cervical radiculopathy, we will obtain cervical MRI and plan on epidural steroid injection pending results. Follow-up in 1 month for MRI review. External records were reviewed and discussed as above, including imaging, clinical notes, and relevant labs. Much of this encounter is an electronic weed thinner/tra nslation of spoken language to printed text. The electronic translation of spoken language may permit erroneous or at times nonsensical words of phrases to be inadvertently transcribed; Although I have reviewed the note for such errors, some may still exist. [email or web address] Not available 02/29/2024 17:40:06 04/15/2024 04/15/2024 Interval history : Mr. Larsen is a pleasant 63-year-old gentleman we see for follow-up today with a complaint of some mild neck pain and occasional radicular symptoms in the left upper extremity more so than right does not follow any clear dermatomal pattern. He reports radicular symptoms are intermittent regardless of what he does it may or may not occur. This has been ongoing for about 4 months. He follows up with an MRI today demonstrates some stenosis on the right at C6-7 and to a greater extent and more consistent with his complaints on the left at C7-T1. This has been reviewed with the patient in office today. We have discussed epidural injections but we also discussed oral steroids which he would like to try first. This office is not providing medication for this patient currently is not taking any controlled substances or has he tried any neuropathic medications. History: Mr. Larsen was referred by Dr. Oliveira, has a history of left arm numbness and tingling. Denies incontinence or myelopathy. No prior neck surgery. No prior injection therapy. MRI reviewed below. Physical therapy in the past without benefit. Does not use controlled pain medicine. Anticoagulants: None PMHx: Hypertension INJ Hx: None PSHx/Surgical Evaluation: No prior neck surgery IMAGING: EMG/nerve conduction study shows left C6 radiculopathy Cervical plain films and straight multilevel spondylosis MRI cervical spine dated 04/08/2024: C2-3: There is a small disc osteophyte complex formation with moderate foraminal narrowing and mild canal narrowing. There is mild effacement of the ventral cord surface. C3-4: There is a disc osteophyte complex formation with effacement of the ventral cord surface. There is moderate foraminal narrowing and mild to moderate canal narrowing. C4-5: There is a disc osteophyte complex formation with moderate foraminal narrowing and mild canal narrowing. C5-6: There is a disc osteophyte complex formation with effacement of the ventral cord surface. There is moderate foraminal narrowing and moderate canal narrowing. C6-7: There is a disc osteophyte complex formation asymmetrically worse on the right. There is moderate to severe right side canal narrowing or foraminal narrowing. C7-T1: There is a small disc osteophyte complex with moderate to severe left foraminal narrowing. There is moderate right foraminal narrowing. There is mild canal narrowing. The above image findings were discussed with the patient. Current medications include NSAIDs. The patient feels that they receive adequate analgesia and activity improvement with the medication. The patient denies side effects from the medications. UDS was not obtained. ORT, PHQ-9 and SHIVA were reviewed today. LOC report was reviewed today and is appropriate. Based upon the above I would consider the patient to be Low risk. PT The patient completed over six weeks of physical therapy in the past without benefit for their pain Plan: Mr. Larsen is a pleasant 63-year-old gentleman with intermittent neck pain and even more intermittent radicular symptoms in the left upper extremity is nondermatomal. MRI demonstrates stenosis at C6-7 on the right and on the left at C7-T1. He would like to try some oral steroids first. I will provide a Medrol Dosepak today. He will follow-up in 1 month if things have not improved I would recommend a C7-T1 ALICE which we have discussed at some length today. The patient is in agreement with this plan. No other medications were provided today. Much of this encounter is an electronic weed thinner/tra nslation of spoken language to printed text. The electronic translation of spoken language may permit erroneous or at times nonsensical words of phrases to be inadvertently transcribed; Although I have reviewed the note for such errors, some may still exist. [email or web address] Not available 04/15/2024 15:56:09 Plan of Treatment Reminders Order Date Submit Date Provider Last Modified By Organization Details Last Modified Time Details Appointments None recorded. Lab None recorded. Referral None recorded. Procedures remote therapeutic monitoring to monitor musculoskel etal system (PROC) 2024 025 [email or web address] Not available 17:40:41 Surgeries None recorded. Imaging MRI, cervical spine, w/o contrast - Left C6 radic 2024 025 [facility] (Scheduling), [address] , [place], [address], 5 08:23:35 Medication Orders Medrol (Chilo) 4 mg tablets in a dose pack 2024 025 [facility], [address], [address], 5 15:53:16 Patient TargetsNo targets recorded. Patient Instructions Encounter Date Encounter Id Patient Instructions Last Modified By Organization Details Last Modified Time 02/29/2024 [id number] behavioral healt h screen* [email or web address] Not available 03/01/2024 07:39:22 Reason for Referral None Reported. Results Created Date Observation Date Name Description Value Unit Range Abnormal Flag Note LastModifiedBy Organization Detail LastModifiedTime 04/10/1904/08/2024 MRI, cervi evelyn spine , w/o contr ast No observ ation record ed. [email or web address] [facility] (Scheduling) [address] , [place], [address], 04/11/2024 12:59:25 Result Notes None recorded. Problems Name Problem SNOMED Code Status Onset Date Resolution Date Notes Provider Name and Address Organization Details Recorded Time Chronic pain 02748316 Active 2024 Aimee muniz [place], [place] - [facility] 5 13:51:39 Cervical spondylosis without myelopathy 640812638 Active 2024 Not Available [facility] 5 10:14:31 Cervical radiculopathy 39817068 Active 2024 Not Available [facility] 5 10:14:31 Overweight 437578864 Active 2024 Not Available [facility] 5 10:14:31 Problem Notes None recorded. Medical Equipment None Reported. Medications Name Sig Start Date Stop Date Status Note LastModified by Organization Details LastModified Time losartan 50 mg tablet TAKE 1 TABLET BY MOUTH ONCE DAILY active Not Available Not Available No t Available furosemide 40 mg tablet TAKE 1 TABLET BY MOUTH ONCE DAILY FOR 3 DAYS THEN ONCE DAILY NEEDED FOR EDEMA active Not Available Not Available No t [...] Available Vitals Date Recorded Body height Body mass index (BMI) Body weight Heart rate Oxygen saturation Oxygen saturation in Arterial blood by Pulse oximetry Systolic blood pressure Diastolic blood pressure Provider Name and Address Organization Details Last Updated DateTime 5 182.88 cm 38 kg/m2 733489. 86 g 79 /min 96 % 96 % 119 mm[Hg] 66 mm[Hg] Aimee muniz [facility] 5 13:57:49 Date Recorded Body height Body mass index (BMI) Body weight Oxygen saturation Oxygen saturation in Arterial blood by Pulse oximetry Heart rate Systolic blood pressure Diastolic blood pressure Provider Name and Address Organization Details Last Updated DateTime 5 182.88 cm 38.1 kg/m2 536394. 46 g 97 % 97 % 88 /min 122 mm[Hg] 81 mm[Hg] Jina jasso [facility] 5 15:38:08 Social History Question Answer Notes LastModified by Organizat ion Details LastModified Time Tobacco Smoking Status Never Smoker Aimee irizarry [facility] 02/29/2024 13:59:13 Do You Have An Advance Directive? No Information not available 02/29/2024 What Type Of Diet Are You Following? REGULAR Information not available 02/29/2024 What Is The Highest Grade Or Level Of School You Have Completed Or The Highest Degree You Have Received? [id number] Information not available 02/29/2024 Do You Have Knee Pain? No Information not available 02/29/2024 Have You Had A Knee Replacement? No Information no t available 02/29/2024 Is Your Knee Pain Being Treated By Someone Else? No Information not available 02/29/2024 Are You Interested In Consulting Us For Your Knee Pain? No Information not available 02/29/2024 Do You Have A Medical Power Of Animal Nursery Worker? No Information not available 02/29/2024 What Was The Date Of Your Most Recent Tobacco Screening? 02/29/2024 Information not available 02/29/2024 What Is Your Relationship Status? Unknown Information not available 02/29/2024 Sex: Unknown Functional Status Question Answer Note LastModified by Organizat ion Details LastModified Time Do you use any illicit or recreational drugs? No Information not available 02/29/2024 What is your level of alcohol consumption? None Information not available 02/29/2024 Are you currently employed? Yes Information not available 02/29/2024 Are you able to walk? YESWOREST Information not available 02/29/2024 What is your exercise level? None Information not available 02/29/2024 Mental Status None recorded. Family History Nothing Reported. Medical History No medical history recorded. Past Encounters Encounter ID Performer Location Encounter Start Date Encounter Closed Date Diagnosis/Indication Diagnosis SNOMED-CT Code Diagnosis ICD10 Code Diagnosis Note [id number] MD Kg [facility] [address] [place] [id number] 02/29/2024 13:39:07 02/29/2024 19:04:51 Cervical radiculopathy 84356783 M54.12 Chronic pain 78719636 G8 9.29 [id number] MD [facility] [address] [place] [address] 04/15/2024 14:59:12 04/15/2024 15:53:11 Chronic pain 42791185 G89.29 Cervical radiculopathy 68368210 M54.12 Health Concerns Section Related Observation LastModified by Organization Detai ls LastModified Time None Recorded Concern Status LastModified by Organization Details LastModified Time None Recorded Advance Directives Directive N: Payers Insurance Date Sequence Insurance Name Policy Number Policy Catherine Covered Member ID Catherine Member ID Guarantor Name 05/11/2024 1 [place] [employer] (MEDICARE REPLACEMENT HMO) [id number] Austin Larsen [id number] Austin Larsen Notes Date Note Type Note Provider Name and Address Organization Details Recorded Time 02/29/2024 text/html Neck painReporte d bypatient.Onset:date of onset: (4 months) Location:left paraspinal; radiating to the left upper extremity to the wrist Duration:constant Context:started without cause Quality:throbbing;tig htness;numbess Pain Intensitycurrent pain level: 6/10; worst pain level: 8/10 Alleviating Factors:nothing helps Aggravating Factors:movement/posi tioning Timing:constant Functional Assessment/Disability IndexLiving Independently;Difficu lty bathing/grooming secondary to pain.;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 Prior Imaging:MRI Previous Cervical Surgery:none Interventional Treatment History:none Previous PT:completed all recommended PT visits; more than 6weeks of PT completed:; response to therapy: no pain improvement; Currently participating in home exercise program(HEP): not effective; Date Started HEP: 11/2023 Days per week: 3; PT discontinued by therapist/physician; Patient has been active in HEP for neck pain for 6 weeks over the last 3 months for 3-4 days a week for 15-30 minutes a day with no relief of pain Other Conservative Treatment:heat: not effective; ice: not effective Working:regular duty Prior Pain Management:no Complete Care Program:Order Date: (02/29/2024) ASHU RENTERIA MD [address] [place] [address], [phone], [facility] 02/29/2024 17:40:44 04/15/2024 text/html Neck painReporte d bypatient.Onset:date of onset: (4 months) Location:left paraspinal; radiating to the left upper extremity to the wrist Duration:constant Context:started without cause Quality:throbbing;tig htness;numbess Pain Intensitycurrent pain level: 2/10; worst pain level: 8/10 Alleviating Factors:nothing helps Aggravating Factors:movement/posi tioning Timing:constant Functional Assessment/Disability IndexLiving Independently;Difficu lty bathing/grooming secondary to pain.;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 Prior Imaging:MRI Previous Cervical Surgery:none Interventional Treatment History:none Previous PT:completed all recommended PT visits; more than 6weeks of PT completed:; response to therapy: no pain improvement; Currently participating in home exercise program(HEP): not effective; Date Started HEP: 11/2023 Days per week: 3; PT discontinued by therapist/physician; Patient has been active in HEP for neck pain for 6 weeks over the last 3 months for 3-4 days a week for 15-30 minutes a day with no relief of pain Other Conservative Treatment:heat: not effective; ice: not effective Working:regular duty Prior Pain Management:no Complete Care Program:Order Date: (02/29/2024) Patients presents today for f/u and to review MRI of neck. Patient states pain is 2/10. Patient denies recent ER visits or Hospitalization. Patient denies recent visits to specialists. Patient denies any other imaging since last visit. No other changes at this time. ARIEL CALVILLO APRN [address] [place], [address], [facility] 04/15/2024 16:37:53
== END 2024-07-31 23:59 | disposition home or self-care (01) ==
LOC: RAD 07:19
PROVIDERS: PCP Family Medicine; Visit Provider Family Medicine
DX: Z13.6 Encounter for screening for cardiovascular disorders (principal)
CPT/HCPCS: 76706